=== PATIENT | male | born 1940 | race Caucasian/White ===

== ENCOUNTER 2018-08-27 15:56 | Inpatient (IN) ==
[2018-08-27] MEDS ORDERED: Ipratropium/Albuterol Neb 3 ML IH ONE (16:07)
[2018-08-27] MEDS ORDERED: predniSONE 20 MG TABLET PO ONE (16:08)
--- NOTE | 2018-08-27 16:13 | Emergency Department Note ---
Disposition Clinical Impression: Sepsis Qualifiers: Sepsis type: sepsis due to unspecified organism Qualified Code(s): A41.9 - Sepsis, unspecified organism Disposition: Still a Patient General Adult HPI - General Chief complaint: ED Shortness of Breath/Dyspnea Stated complaint: Pnuemonia Time Seen by Provider: 08/27/18 16:01 - History of Present Illness HPI Narrative: Attestation note: Patient was seen with the emergency medicine resident/nurse practitioner/physician assistant operator/transitional resident/medical student: Dr. Dominick Holly I have personally performed a face to face evaluation on this patient. I have reviewed and agree with history and physical examination patient management and disposition. Briefly the salient points of the case are as follows: 78-year-old male history of COPD on home O2 continuously increasing shortness of breath lightheadedness and weakness for the past several days. Rise with positive SIRS criteria cough with sputum decreased breath sounds bilaterally with expiratory wheezing he is tachycardic in the 120s to get neck in the 22 he slightly hypoxic at 92%. She will undergo sepsis workup. Patient will get sepsis protocol including d-dimer. Disposition pending, admission anticipated. Providing 40 minutes critical care service for this patient. Pain Scale: 5 - Related Data Home Medications Medication Instructions Recorded Confirmed ALPRAZolam [Xanax 0.5 MG Tablet] 0.5 mg PO BID MDD anx 07/17/15 08/01/18 Bimatoprost [Lumigan] 1 drop BOTH EYES HS 07/17/15 08/01/18 Budesonide/Formoterol 160/4.5 2 puff IH BIDR 07/17/15 08/01/18 [Symbicort] Ipratropium/Albuterol Sulfate 1 puff IH QID PRN 07/17/15 08/01/18 [Combivent Respimat Inhal [place]] Oxygen 2 l NS CONT 07/17/15 08/01/18 Levalbuterol Neb [Xopenex Neb] 0.63 mg IH Q3H PRN 04/17/16 08/01/18 predniSONE [PredniSONE] 10 mg PO DAILY 02/15/17 08/01/18 Omeprazole [PriLOSEC] 20 mg PO DAILY 06/14/17 08/01/18 Polyethylene Glycol 3350 [MiraLAX] 17 gm PO DAILY 08/17/17 10/01/18 Previous Rx's Medication Instructions Recorded Melatonin 5 mg PO HS PRN #20 tablet 06/20/17 Allergies Allergy/AdvReac Type Severity Reaction Status Date / Time Sulfa (Sulfonamide Allergy Rash Verified 08/27/18 15:59 Antibiotics) Past Medical History - Past Medical History Medical history: Reports: COPD, GERD Surgical history: Reports: cholecystectomy, other Psychiatric history: Reports: anxiety, panic disorder - Social History Smoking Status: Unknown if ever smoked Smokeless Tobacco Status: No Alcohol use: Reports: none, occasionally Drug use: Reports: none Course Vital Signs Temperature 99.8 F H 08/27/18 15:57 Pulse Rate 121 08/27/18 15:57 Respiratory Rate 22 08/27/18 15:57 Blood Pressure 148/79 08/27/18 15:57 O2 Sat by Pulse Oximetry 92 08/27/18 15:57 Temperature 99.8 F H 08/27/18 15:57 Pulse Rate 121 08/27/18 15:57 Respiratory Rate 22 08/27/18 15:57 Blood Pressure 148/79 08/27/18 15:57 O2 Sat by Pulse Oximetry 92 08/27/18 15:57 Oxygen Delivery Oxygen Delivery Room Air
[2018-08-27] MEDS ORDERED: *HR* FentaNYL (PF) 100 MCG/2 ML VIAL IVP ONE (16:15)
[2018-08-27] MEDS ORDERED: 0.9 % Sodium Chloride 1,000 ML IVC ONE ×2 (16:17→17:05)
--- NOTE | 2018-08-27 16:17 | Emergency Department Note ---
Disposition Clinical Impression: HCAP (healthcare-associated pneumonia) Disposition: Admitted As Inpatient Condition: Fair Referrals: Khai Machado MD [Primary Care Provider] - Forms: ED Satisfaction Letter General Adult HPI - General Chief complaint: ED Shortness of Breath/Dyspnea Stated complaint: Pnuemonia Time Seen by Provider: 08/27/18 16:01 Source: patient Mode of arrival: ambulatory Limitations: no limitations Nursing Notes Reviewed: Yes Vital Signs Reviewed: Yes - History of Present Illness HPI Narrative: Randy Rice is a 78 year old male with a PMH of COPD presenting with a CC of SOB and left sided rib cage pain for two weeks duration. While pt notes symptoms first began apprx two weeks ago, symptoms significantly worsened within the last 2-3 days.He states that although he has not checked his temperature at home he has had a tactile fever as well as increased SOB from his baseline. Has been using his breathing treatments at home with some relief and is constantly on 2L O2 at home. Pain worsens with inspiration. Denies any increase in baseline cough. He also denies any recent trauma, recent immobilization, or prolonged travel. The history, physical exam, and medical decision making was performed by the medical student either while I was physically present and actively involved or I personally re-performed the exam and medical decision making. I have verified the accuracy of the medical student's documentation with regards to the history, physical exam findings, and medical decision making. 78-year-old male past medical history of COPD, dependent on oxygen, using 2 L of oxygen via nasal cannula. Seen at outside facility a few days ago. Chest x-ray did not reveal any evidence of pneumonia at that time. Patient currently complaining of left-sided rib pains, that is different from previous COPD exacerbations. Has taken one DuoNeb at home and this improved some of the symptoms. Takes daily prednisone. 10 mg orally. Onset (ago): day(s) (2-3 days) Location: chest (Left Rib cage) Radiation: non-radiation Pain Severity: moderate Pain Scale: 5 Quality: sharp, constant Consistency: constant Improves with: nothing Worsens with: other (Inhalation ) Associated symptoms: Reports: fever/chills, shortness of breath. Denies: cough, diaphoresis, headaches, nausea/vomiting Treatments Prior to Arrival: other (Duoneb at home ) - Related Data Home Medications Medication Instructions Recorded Confirmed ALPRAZolam [Xanax 0.5 MG Tablet] 0.5 mg PO BID MDD anx 07/17/15 08/01/18 Bimatoprost [Lumigan] 1 drop BOTH EYES HS 07/17/15 08/01/18 Budesonide/Formoterol 160/4.5 2 puff IH BIDR 07/17/15 08/01/18 [Symbicort] Ipratropium/Albuterol Sulfate 1 puff IH QID PRN 07/17/15 08/01/18 [Combivent Respimat Inhal [place]] Oxygen 2 l NS CONT 07/17/15 08/01/18 Levalbuterol Neb [Xopenex Neb] 0.63 mg IH Q3H PRN 04/17/16 08/01/18 predniSONE [PredniSONE] 10 mg PO DAILY 02/15/17 08/01/18 Omeprazole [PriLOSEC] 20 mg PO DAILY 06/14/17 08/01/18 Polyethylene Glycol 3350 [MiraLAX] 17 gm PO DAILY 06/17/17 08/01/18 Previous Rx's Medication Instructions Recorded Melatonin 5 mg PO HS PRN #20 tablet 06/20/17 Allergies Allergy/AdvReac Type Severity Reaction Status Date / Time Sulfa (Sulfonamide Allergy Rash Verified 08/27/18 15:59 Antibiotics) All systems ED: reviewed and negative except as stated. Review of Systems: As Per HPI Constitutional: Reports: fever (Subjective), chills Cardiovascular: Reports: chest pain (Left-sided rib pain) Respiratory: Reports: cough, dyspnea. Denies: hemoptysis Gastrointestinal: Denies: abdominal pain Musculoskeletal: Reports: back pain Endocrine: Denies: fatigue Past Medical History - Past Medical History Medical history: Reports: COPD, GERD Surgical history: Reports: cholecystectomy, other Psychiatric history: Reports: anxiety, panic disorder - Social History Smoking Status: Unknown if ever smoked Smokeless Tobacco Status: No Alcohol use: Reports: none, occasionally Drug use: Reports: none Physical Exam - General Limitations: no limitations General appearance: alert - Head Head exam: normocephalic - Eye Eye exam: Present: EOMI - ENT ENT exam: mucous membranes dry - Neck Neck exam: Present: full ROM, trachea midline - Chest Chest inspection: Present: normal inspection, symmetric chest wall rise - Respiratory Respiratory exam: Present: wheezes (Insipratiory & Expiratory wheezes), prolonged expiratory phase, other (Significantly decreased breath sounds throughout ) - Cardiovascular Cardiovascular exam: Present: normal rhythm, tachycardia - Abdominal Exam Abdominal exam: Present: soft, Non-Tender. Absent: distention, guarding, rebound, rigidity - Extremities Exam Extremities exam: Present: normal inspection, other (No palpable cords, no lower semi-swelling). Absent: tenderness, pedal edema, calf tenderness - Expanded Lower Extremity Exam Lower leg exam: Absent: tenderness, swelling Ankle exam: Absent: swelling Course Vital Signs Temperature 99.8 F H 08/27/18 15:57 Pulse Rate 121 08/27/18 15:57 Respiratory Rate 22 08/27/18 15:57 Blood Pressure 148/79 08/27/18 15:57 O2 Sat by Pulse Oximetry 92 08/27/18 15:57 Temperature 99.8 F H 08/27/18 16:16 Pulse Rate 121 08/27/18 16:16 Respiratory Rate 16 08/27/18 16:40 Blood Pressure 148/79 08/27/18 16:16 O2 Sat by Pulse Oximetry 99 08/27/18 16:40 Oxygen Delivery Oxygen Delivery Room Air Medical Decision Making - MDM Narrative Medical decision making narrative: 78-year-old male presents emergency department with concern for tachycardia, shortness of breath, left-sided rib pain. EKG did not reveal any ischemic ST changes. Patient was given 2 L of normal saline here in the emergency de partment. Chest x-ray reveals new infiltrate in the mid to upper left long concerning for pneumonia. Patient is mild leukocytosis at 12.8. Lactic acid normal. Patient given 3 DuoNeb's in the emergency department as well as 60 mg of prednisone orally. Will start patient on Vancomycin, Zosyn, Levaquin. At risk for hospital-acquired pneumonia as he was recently admitted. Blood pressure and oxygen saturation remains stable. Patient complaining of chest pain. D-dimer was within normal limits. Troponin was negative. Do not suspect dissection at this time as patient has equal pulses bilaterally, only complaining of left-sided chest pain and only mildly which would be atypical for dissection. Patient admitted to hospitalist, Dr. High for further management. Chest X-Ray 08/27/18 16:03 IMPRESSION: 1. New infiltrate versus atelectasis lateral mid to upper left lung may reflect pneumonia. 2. Changes typical of emphysema. D/ / Kulwinder Clinton / Kulwinder Clinton Interpreting Provider: Kulwinder Clinton Vital Signs Temperature 99.8 F H 08/27/18 15:57 Pulse Rate 121 08/27/18 15:57 Respiratory Rate 22 08/27/18 15:57 Blood Pressure 148/79 08/27/18 15:57 O2 Sat by Pulse Oximetry 92 08/27/18 15:57 Temperature 99.8 F H 08/27/18 16:16 Pulse Rate 121 08/27/18 16:16 Respiratory Rate 16 08/27/18 16:40 Blood Pressure 148/79 08/27/18 16:16 O2 Sat by Pulse Oximetry 99 08/27/18 16:40 Oxygen Delivery Oxygen Delivery Room Air - Lab Data Result diagrams: 08/27/18 16:25 08/27/18 16:25 Lab Results 08/27/18 08/27/18 08/27/18 Range/Units 16:25 16:25 16:25 WBC 12.8 H (4.3-11.1) K/mcL RBC 4.51 (4.19-5.50) M/mcL Hgb 13.1 (12.9-16.9) g/dL Hct 43.1 (37.5-50.1) % MCV 95.6 (83.0-100.0) fL MCH 29.0 (28.0-33.3) pg MCHC 30.4 L (31.6-35.5) g/dL RDW 13.7 (11.5-14.5) % Plt Count 176 (140-400) K/mcL MPV 11.3 (9.4-12.4) fL Immature Gran % 0.5 (0-4) % Seg Neutrophils % 84.4 % Lymphocytes % 4.1 % Monocytes % 9.9 % Eosinophils % 0.9 % Basophils % 0.2 % Neutrophils # 10.8 H (1.6-8.9) K/mcL Lymphocytes # 0.5 L (0.6-4.6) K/mcL Monocytes # 1.3 (0.0-1.3) K/mcL Eosinophils # 0.1 (0.0-0.6) K/mcL Basophils # 0.0 (0.0-0.2) K/mcL D-Dimer 457 (0-500) ng/mLFEU Sodium 138 (136-145) mEq/L Potassium 4.4 (3.5-5.1) mEq/L Chloride 97 L (98-107) mEq/L Carbon Dioxide 33 H (23-29) mEq/L BUN 16 (8-23) mg/dL Creatinine 0.87 (0.70-1.30) mg/dL Est GFR ( Amer) > 60 (> 60) Est GFR (Non-Af Amer) > 60 (> 60) BUN/Creatinine Ratio 18 (6-26) Glucose 206 H (70-105) mg/dL Calculated Osmolality 293 (280-300) Lactic Acid (0.5-2.2) mmol/L Calcium 9.3 (8.6-10.3) mg/dL Troponin I < 0.03 (< 0.04) ng/mL 08/27/18 Range/Units 16:25 WBC (4.3-11.1) K/mcL RBC (4.19-5.50) M/mcL Hgb (12.9-16.9) g/dL Hct (37.5-50.1) % MCV (83.0-100.0) fL MCH (28.0-33.3) pg MCHC (31.6-35.5) g/dL RDW (11.5-14.5) % Plt Count (140-400) K/mcL MPV (9.4-12.4) fL Immature Gran % (0-4) % Seg Neutrophils % % Lymphocytes % % Monocytes % % Eosinophils % % Basophils % % Neutrophils # (1.6-8.9) K/mcL Lymphocytes # (0.6-4.6) K/mcL Monocytes # (0.0-1.3) K/mcL Eosinophils # (0.0-0.6) K/mcL Basophils # (0.0-0.2) K/mcL D-Dimer (0-500) ng/mLFEU Sodium (136-145) mEq/L Potassium (3.5-5.1) mEq/L Chloride (98-107) mEq/L Carbon Dioxide (23-29) mEq/L BUN (8-23) mg/dL Creatinine (0.70-1.30) mg/dL Est GFR ( Amer) (> 60) Est GFR (Non-Af Amer) (> 60) BUN/Creatinine Ratio (6-26) Glucose (70-105) mg/dL Calculated Osmolality (280-300) Lactic Acid 1.0 (0.5-2.2) mmol/L Calcium (8.6-10.3) mg/dL Troponin I (< 0.04) ng/mL - EKG Data EKG #1 EKG attestation: Yes I reviewed and interpreted this EKG. EKG results narrative: 16:14 Heart rate 113 bpm, AK interval 151 ms, QRS orthodoxy 80 ms, QT 300 ms, normal axis. Sinus tachycardia with a ventricular rate of 113 bpm. No evidence of any ischemic ST changes on this EKG. Compared with the previous one obtained on June 17, 2017.
--- NOTE | 2018-08-27 16:23 | Emergency Department Note ---
Disposition SOB HPI - General Chief Complaint: ED Shortness of Breath/Dyspnea Stated Complaint: Pnuemonia Time Seen by Provider: 08/27/18 16:01 - History of Present Illness Randy Rice is a 78 year old male with a PMH of COPD presenting with a CC of SOB and left sided rib cage pain for two weeks duration. While pt notes symptoms first began apprx two weeks ago, symptoms significantly worsened within the last 2-3 days.He states that although he has not checked his temperature at home he has had a tactile fever as well as increased SOB from his baseline. Has been using his breathing treatments at home with some relief and is constantly on 2L O2 at home. Pain worsens with inspiration. Denies any increase in baseline cough. He also denies any recent trauma, recent immobilization, or prolonged travel. - Related Data Home Medications Medication Instructions Recorded Confirmed ALPRAZolam [Xanax 0.5 MG Tablet] 0.5 mg PO BID MDD anx 07/17/15 08/01/18 Bimatoprost [Lumigan] 1 drop BOTH EYES HS 07/17/15 08/01/18 Budesonide/Formoterol 160/4.5 2 puff IH BIDR 07/17/15 08/01/18 [Symbicort] Ipratropium/Albuterol Sulfate 1 puff IH QID PRN 07/17/15 08/01/18 [Combivent Respimat Inhal [place]] Oxygen 2 l NS CONT 07/17/15 08/01/18 Levalbuterol Neb [Xopenex Neb] 0.63 mg IH Q3H PRN 04/17/16 08/01/18 predniSONE [PredniSONE] 10 mg PO DAILY 02/15/17 08/01/18 Omeprazole [PriLOSEC] 20 mg PO DAILY 06/14/17 08/01/18 Polyethylene Glycol 3350 [MiraLAX] 17 gm PO DAILY 06/17/17 08/01/18 Previous Rx's Medication Instructions Recorded Melatonin 5 mg PO HS PRN #20 tablet 06/20/17 Allergies Allergy/AdvReac Type Severity Reaction Status Date / Time Sulfa (Sulfonamide Allergy Rash Verified 08/27/18 15:59 Antibiotics) Past Medical History - Past Medical History Medical history: Reports: COPD, GERD Surgical history: Reports: cholecystectomy, other Psychiatric history: Reports: anxiety, panic disorder - Social History Smoking Status: Unknown if ever smoked Smokeless Tobacco Status: No Alcohol use: Reports: none, occasionally Drug use: Reports: none Course Vital Signs Temperature 99.8 F H 08/27/18 15:57 Pulse Rate 121 08/27/18 15:57 Respiratory Rate 22 08/27/18 15:57 Blood Pressure 148/79 08/27/18 15:57 O2 Sat by Pulse Oximetry 92 08/27/18 15:57 Temperature 99.8 F H 08/27/18 15:57 Pulse Rate 121 08/27/18 15:57 Respiratory Rate 22 08/27/18 15:57 Blood Pressure 148/79 08/27/18 15:57 O2 Sat by Pulse Oximetry 92 08/27/18 15:57 Oxygen Delivery Oxygen Delivery Room Air
[2018-08-27 16:41] LABS: Basophils % 0.2 %; Eosinophils # 0.1 K/mcL (0.0-0.6); Eosinophils % 0.9 %; Hematocrit 43.1 % (37.5-50.1); Hemoglobin 13.1 g/dL (12.9-16.9); Immature Granulocytes % 0.5 % (0-4); Lymphocytes # 0.5 K/mcL (0.6-4.6); Lymphocytes % 4.1 %; Mean Corpuscular HGB Conc 30.4 g/dL (31.6-35.5); Mean Corpuscular Volume 95.6 fL (83.0-100.0); Mean Platelet Volume 11.3 fL (9.4-12.4); Monocytes # 1.3 K/mcL (0.0-1.3); Monocytes % 9.9 %; Neutrophils # 10.8 K/mcL (1.6-8.9); Platelet Count 176 K/mcL (140-400); Red Blood Count 4.51 M/mcL (4.19-5.50); Red Cell Distribution Width 13.7 % (11.5-14.5); Segmented Neutrophils % 84.4 %
[2018-08-27] MEDS ORDERED: Piperacillin/Tazobactam 3.375 GM in 0.9 % Sodium Chloride Mini Bag 100 ML IVPB ONE (17:01)
[2018-08-27] MEDS ORDERED: Levofloxacin 750 MG/150 ML 750 MG/150 ML BAG IVPB ONE (17:02)
[2018-08-27 17:06] LABS: BUN/Creatinine Ratio 18 (6-26); Blood Urea Nitrogen 16 mg/dL (8-23); Calcium 9.3 mg/dL (8.6-10.3); Carbon Dioxide 33 mEq/L (23-29); Chloride 97 mEq/L (98-107); Glucose 206 mg/dL (70-105); Osmolality,Calculated 293 (280-300); Potassium 4.4 mEq/L (3.5-5.1); Sodium 138 mEq/L (136-145); eGFR For Non-African Americans > 60 (> 60)
[2018-08-27 17:08] LABS: Troponin I < 0.03 ng/mL (< 0.04)
[2018-08-27 17:40] LABS: Bilirubin,Urine Negative (Negative); Blood,Urine Trace (Negative); Clarity,Urine Clear (Clear); Color,Urine Yellow (Yellow); Glucose,Urine (UA) >=1000 mg/dL (Normal); Ketones,Urine 40 mg/dL (Negative); Leukocyte Esterase,Urine Negative (Negative); Nitrite,Urine Negative (Negative); Protein,Urine 30 mg/dL (Neg-Trace); Specific Gravity,Urine > 1.030 (1.010-1.025); Urobilinogen,Urine Normal (Normal)
[2018-08-27 17:41] LABS: Bacteria,Urine None Seen per hpf (None-Few); Hyaline Casts,Urine None Seen per lpf (None-Few); Squamous Epithelial Cell,Urine Moderate per lpf (None-Few); WBC,Urine 0-3 per hpf (0-3)
[2018-08-27] MEDS ORDERED: Isovue-370 500 ML INFUS..BTL IV ONE (18:18)
[2018-08-27] MEDS ORDERED: Naloxone 0.4 MG/ML INJ IVP PRN (18:19)
--- NOTE | 2018-08-27 18:33 | Internal Med History&Physical ---
Date of Encounter: 08/27/18 Time of Encounter: 17:00 Internal Medicine - H&P: HPI Chief complaint: Inspiratory chest pain Admitted From: Home Plans for Post Hospital Care: Hospice - Home History of present illness: Patient is a 78-year-old male with past medical history significant for O2 dependent COPD on 2 L of nasal cannula continuously, generalized anxiety disorder, GERD and iron deficiency anemia who presents to the ER on 08/27/18 due to left chest wall pain with inspiration. She reported that symptoms started approximately 2 days ago and describes a sharp left-sided chest wall discomfort with deep inspiration which lasts for minutes and then dissipates. Patient denies any other associated symptoms. In the ER, patient was found to have a slight leukocytosis with a white blood cell count 12.8 with low-grade temp of 99.8 and on chest x-ray concerns for a new infiltrate and left middle/left upper lobe. Patient will be admitted to medical surgical floor for treatment of pneumonia. Past Med Surg Social Fam HX - Past Medical History Medical history: COPD, GERD Additional medical history: anemia, empthsema, gastric ulcer Psychiatric history: anxiety, panic disorder - Past Surgical History Surgical History: cholecystectomy, other Additional surgical history: ERCP, carpal tunnel release, bursectomy left arm - Social History Smoking Status: Unknown if ever smoked Smokeless Tobacco Status: No Alcohol use: none, occasionally Drug use: none - Family History Mother Living Status: Hx Family Neurologic Disorders: Yes (Dementia) Father Living Status: Internal Medicine - H&P: Meds ALPRAZolam [Xanax 0.5 MG Tablet] 0.5 mg PO BID MDD anx 07/17/15 [History] Bimatoprost [Lumigan] 1 drop BOTH EYES HS 07/17/15 [History] Budesonide/Formoterol 160/4.5 [Symbicort] 2 puff IH BIDR 07/17/15 [History] Ipratropium/Albuterol Sulfate [Combivent Respimat Inhal [place]] 1 puff IH QID PRN 07/17/15 [History] Oxygen 2 l NS CONT 07/17/15 [History] Levalbuterol Neb [Xopenex Neb] 0.63 mg IH Q3H PRN 04/17/16 [History] predniSONE [PredniSONE] 10 mg PO DAILY 02/15/17 [History] Omeprazole [PriLOSEC] 20 mg PO DAILY 06/14/17 [History] Polyethylene Glycol 3350 [MiraLAX] 17 gm PO DAILY 06/17/17 [History] Melatonin 5 mg PO HS PRN #20 tablet 06/20/17 [Rx] Allergy/AdvReac Type Severity Reaction Status Date / Time Sulfa (Sulfonamide Allergy Rash Verified 08/27/18 15:59 Antibiotics) All Systems PM: A 10-system review of systems was performed and is negative for pertinent fi ndings except as documented above in the HPI. - Constitutional Vitals: Temp Pulse Resp BP Pulse Ox 99.8 F H 112 18 152/76 98 08/27/18 16:16 08/27/18 17:51 08/27/18 17:51 08/27/18 17:51 08/27/18 17:51 General appearance: Present: A&O X 3 Exam: As above - Eye Eye exam: Present: normal appearance - ENT ENT exam: Present: mucous membranes dry - Respiratory Respiratory exam: Present: CTAB. Absent: accessory muscle use, rales, rhonchi, wheezes - Cardiovascular Cardiovascular exam: Present: RRR, +S1, +S2. Absent: diastolic murmur, gallop, rubs, systolic murmur - GI/Abdominal GI/Abdominal exam: Present: normal bowel sounds, soft, no peritoneal signs. Absent: distended, tenderness - Expanded Lower Extremities Exam Lower Leg exam: Absent: swelling - Neurological Exam Neurological exam: Present: alert, oriented X3 - Psychiatric Psychiatric exam: Present: normal mood - Skin Skin exam: Present: normal color Internal Med - H&P Results - Labs CBC & Chem 7: 08/27/18 16:25 08/27/18 16:25 Labs: Short CBC 08/27/18 Range/Units 16:25 WBC 12.8 H (4.3-11.1) K/mcL Hgb 13.1 (12.9-16.9) g/dL Hct 43.1 (37.5-50.1) % Plt Count 176 (140-400) K/mcL Neutrophils # 10.8 H (1.6-8.9) K/mcL BMP 08/27/18 16:25 Sodium 138 Potassium 4.4 Chloride 97 L Carbon Dioxide 33 H BUN 16 Creatinine 0.87 Glucose 206 H Calcium 9.3 Cardiac Enzymes 08/27/18 Range/Units 16:25 Troponin I < 0.03 (< 0.04) ng/mL Urine 08/27/18 Range/Units 17:33 Urine Color Yellow (Yellow) Urine Clarity Clear (Clear) Urine pH 6.0 (5.0-8.0) pH Units Ur Specific [place] > 1.030 H (1.010-1.025) Urine Protein 30 H (Neg-Trace) mg/dL Urine Glucose (UA) >=1000 H (Normal) mg/dL - Impressions ITS Impressions Chest X-Ray 08/27/18 16:03 IMPRESSION: 1. New infiltrate versus atelectasis lateral mid to upper left lung may reflect pneumonia. 2. Changes typical of emphysema. D/ / Kulwinder Clinton / Kulwinder Clinton Interpreting Provider: Kulwinder Clinton - Assessment and plan (1) Pneumonia Current Visit: Yes Status: Acute Assessment and plan: Patient was found to have a slight leukocytosis with a white blood cell count 12 .8 with low-grade temp of 99.8 and on chest x-ray concerns for a new infiltrate and left middle/left upper lobe. CT of the chest pending due to history of suspicious lung mass Will continue IV Levaquin Qualifiers: Lung location: unspecified part of lung Qualified Code(s): J18.9 - Pneumonia, unspecified organism (2) COPD exacerbation Current Visit: No Status: Acute Assessment and plan: Will continue scheduled DuoNeb's and oral prednisone (3) Anxiety Current Visit: No Status: Acute Assessment and plan: Continue home medications (4) GERD (gastroesophageal reflux disease) Current Visit: No Status: Chronic Assessment and plan: Continue home dose of PPI Qualifiers: Esophagitis presence: without esophagitis Qualified Code(s): K21.9 - Gastro-esophageal reflux disease without esophagitis (5) DVT prophylaxis Current Visit: No Status: Acute Assessment and plan: Heparin subcutaneous - Time Spent With Patient Total time spent is greater than 50% in coordination of care (as documented) at patient's floor/unit and/or counseling patient:
[2018-08-27] MEDS: Ipratropium/Albuterol Neb 3 ML IH SCH ×2 (19:54→23:55)
[2018-08-27] MEDS: 0.9 % Sodium Chloride 1,000 ML IVC SCH (23:18)
[2018-08-27] MEDS: *HR* Heparin 5,000 UNIT/ML VIAL SQ SCH (23:32)
[2018-08-28 04:09] LABS: Basophils % 0.1 %; Hematocrit 40.4 % (37.5-50.1); Immature Granulocytes % 0.4 % (0-4); Lymphocytes # 0.3 K/mcL (0.6-4.6); Lymphocytes % 2.7 %; Mean Corpuscular HGB Conc 29.7 g/dL (31.6-35.5); Mean Corpuscular Hemoglobin 28.5 pg (28.0-33.3); Mean Platelet Volume 11.4 fL (9.4-12.4); Monocytes # 0.3 K/mcL (0.0-1.3); Monocytes % 2.8 %; Neutrophils # 10.5 K/mcL (1.6-8.9); Platelet Count 175 K/mcL (140-400); Red Blood Count 4.21 M/mcL (4.19-5.50); Red Cell Distribution Width 13.7 % (11.5-14.5)
[2018-08-28 04:22] LABS: BUN/Creatinine Ratio 18 (6-26); Blood Urea Nitrogen 15 mg/dL (8-23); Calcium 8.7 mg/dL (8.6-10.3); Carbon Dioxide 31 mEq/L (23-29); Chloride 101 mEq/L (98-107); Glucose 183 mg/dL (70-105); Osmolality,Calculated 296 (280-300); Potassium 4.2 mEq/L (3.5-5.1); Sodium 140 mEq/L (136-145); eGFR For Non-African Americans > 60 (> 60)
[2018-08-28] MEDS: Ipratropium/Albuterol Neb 3 ML IH SCH ×6 (04:34→23:16)
[2018-08-28] MEDS: *HR* Heparin 5,000 UNIT/ML VIAL SQ SCH ×3 (05:33→22:26)
[2018-08-28] MEDS: Melatonin 3 MG TABLET PO PRN ×2 (05:35→23:26)
[2018-08-28] MEDS: 0.9 % Sodium Chloride 1,000 ML IVC SCH (06:53)
--- NOTE | 2018-08-28 09:41 | Internal Med Progress Note ---
Hospitalist Progress Note - Encounter Date of Encounter: 08/28/18 Time of Encounter: 11:00 - Subjective Interval History: Patient reports improvement in shortness of breath and no longer reported chest pain Patient's leukocytosis has resolved and has been afebrile and currently on baseline O2 requirements - Exam Vitals: Temp Pulse Resp BP Pulse Ox 98.6 F 92 18 103/62 98 08/28/18 07:25 08/28/18 07:25 08/28/18 07:43 08/28/18 07:25 08/28/18 07:43 Exam: Gen.: Nonacute distress, alert and oriented 3 ENT: Mucosal membranes moist Respiratory: Lungs are clear to auscultation bilaterally without any wheezing rhonchi or rales Cardiovascular: Normal S1 and S2 regular rate rhythm no murmurs rubs or gallops Abdomen: Soft, nontender and nondistended with positive bowel sounds Extremities: No lower extremity edema Skin: Normal color - Assessment and Plan (1) Pneumonia Current Visit: Yes Status: Acute Assessment and Plan: Patient on admission was found to have a slight leukocytosis with a white blood cell count 12.8 with low-grade temp of 99.8 and on chest x-ray concerns for a new infiltrate and left middle/left upper lobe. CT of the chest showed left lower lobe pneumonia with moderate emphysema Patient's leukocytosis has resolved this morning and afebrile on day 2 of IV Levaquin; patient on baseline O2 requirements Continue current management (2) COPD exacerbation Current Visit: No Status: Acute Assessment and Plan: Secondary to pneumonia as above Patient on baseline O2 requirements as above Will continue scheduled DuoNeb's and oral prednisone (3) Anxiety Current Visit: No Status: Acute Assessment and Plan: Continue home medications (4) GERD (gastroesophageal reflux disease) Current Visit: No Status: Chronic Assessment and Plan: Continue home dose of PPI DVT Prophylaxis: Heparin subcutaneous - Time Spent with Patient Total time spent is greater than 50% in coordination of care (as documented) at patient's floor/unit and/or counseling patient: Internal Medicine: Result - Labs CBC & Chem 7: 08/28/18 03:50 08/28/18 03:50 Labs: Short CBC 08/27/18 08/28/18 Range/Units 16:25 03:50 WBC 12.8 H 11.1 (4.3-11.1) K/mcL Hgb 13.1 12.0 L (12.9-16.9) g/dL Hct 43.1 40.4 (37.5-50.1) % Plt Count 176 175 (140-400) K/mcL Neutrophils # 10.8 H 10.5 H (1.6-8.9) K/mcL BMP 08/27/18 08/28/18 16:25 03:50 Sodium 138 140 Potassium 4.4 4.2 Chloride 97 L 101 Carbon Dioxide 33 H 31 H BUN 16 15 Creatinine 0.87 0.82 Glucose 206 H 183 H Calcium 9.3 8.7 Cardiac Enzymes 08/27/18 Range/Units 16:25 Troponin I < 0.03 (< 0.04) ng/mL Urine 08/27/18 Range/Units 17:33 Urine Color Yellow (Yellow) Urine Clarity Clear (Clear) Urine pH 6.0 (5.0-8.0) pH Units Ur Specific [employer] > 1.030 H (1.010-1.025) Urine Protein 30 H (Neg-Trace) mg/dL Urine Glucose (UA) >=1000 H (Normal) mg/dL - ABG Interpretation ABG results: PT/INR, D-dimer D-Dimer 457 ng/mLFEU (0-500) 08/27/18 16:25 - Impressions Impressions Chest X-Ray 08/27/18 16:03 IMPRESSION: 1. New infiltrate versus atelectasis lateral mid to upper left lung may reflect pneumonia. 2. Changes typical of emphysema. D/ / Kulwinder Clinton / Kulwinder Clinton Interpreting Provider: Kulwinder Clinton Chest CT 08/27/18 18:18 IMPRESSION: Left lower lobe pneumonia. Moderate emphysema. Recommend follow-up to complete resolution. D/ / Ariel Gentile MD / Ariel Gentile MD Interpreting Provider: Ariel Gentile MD Consult Discharge Plan - Plan Referrals: Khai Machado MD [Primary Care Provider] - __ (1) Pneumonia Qualifiers: Lung location: unspecified part of lung Qualified Code(s): J18.9 - Pneumonia, unspecified organism (4) GERD (gastroesophageal reflux disease) Qualifiers: Esophagitis presence: without esophagitis Qualified Code(s): K21.9 - Gastro- esophageal reflux disease without esophagitis
[2018-08-28] MEDS: predniSONE 20 MG TABLET PO SCH (09:53)
[2018-08-28] MEDS: Levofloxacin 750 MG/150 ML 750 MG/150 ML BAG IVPB SCH (09:54)
[2018-08-29] MEDS: Ipratropium/Albuterol Neb 3 ML IH SCH ×4 (04:12→16:25)
[2018-08-29] MEDS: *HR* Heparin 5,000 UNIT/ML VIAL SQ SCH ×2 (05:15→16:23)
[2018-08-29] MEDS: predniSONE 20 MG TABLET PO SCH (08:42)
[2018-08-29] MEDS: Levofloxacin 750 MG/150 ML 750 MG/150 ML BAG IVPB SCH (08:43)
[2018-08-29 11:07] VITALS: BP 132/65
[2018-08-29 13:27] LABS: Estimated Average Glucose 174 mg/dl; Hemoglobin A1C 7.7 %
--- NOTE | 2018-08-29 15:25 | Discharge Summary ---
- NOTES TO OUTPATIENT PROVIDER Notes to Outpatient Provider: PCP in 5 to 7 days. Orders not resulted at time of discharge: Pending orders 08/27/18 16:25 Culture,Blood [BC] Stat Recommend out pt diabetic teaching Date of Encounter: 08/29/18 Time of Encounter: 15:18 - Discharge Diagnosis (1) Pneumonia Priority: Primary Status: Acute Assessment and Plan: Patient on admission was found to have a slight leukocytosis with a white blood cell count 12.8 with low-grade temp of 99.8 and on chest x-ray concerns for a new infiltrate and left middle/left upper lobe. CT of the chest showed left lower lobe pneumonia with moderate emphysema. Patient's leukocytosis has resolved this morning and afebrile on day 2 of IV Levaquin; patient on baseline O2 requirements. Will DC on Levaquin PO for few more days. Qualifiers: Lung location: unspecified part of lung Qualified Code(s): J18.9 - Pneum onia, unspecified organism (2) COPD exacerbation Priority: Primary Status: Acute Assessment and Plan: Secondary to pneumonia as above Patient on baseline O2 requirements as above Continue scheduled home DuoNeb's and oral prednisone (3) GERD (gastroesophageal reflux disease) Priority: Secondary Status: Chronic Assessment and Plan: Continue home dose Omeprazole 20 mg PO QD Qualifiers: Esophagitis presence: without esophagitis Qualified Code(s): K21.9 - Gastro-esophageal reflux disease without esophagitis (4) Anxiety Priority: Secondary Status: Acute Assessment and Plan: Continue home medications (5) Diabetes type 2, uncontrolled Priority: Primary Status: Acute Assessment and Plan: New diagnosis on this admission. Possibly exacerbated by chronic steroid use. Hg A1c 7.7. Will start on Metformin 500 mg BID. Recommend out pt follow up with PCP. Qualifiers: Qualified Code(s): E11.65 - Type 2 diabetes mellitus with hyperglycemia Hospital course: Mr. 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 She reported that symptoms started approximately 2 days ago and describes a sharp left-sided chest wall discomfort with deep inspiration which lasts for minutes and then dissipates. Patient denies any other associated symptoms. In the ER, patient was found to have a slight leukocytosis with a white blood cell count 12.8 with low-grade temp of 99.8 and on chest x-ray concerns for a new infiltrate and left middle/left upper lobe. Patient will be admitted to medical surgical floor for treatment of pneumonia. See assessment and plan for complete hospital course. Discharge discussed with: patient - Time Spent with Patient Total time spent providing and/or coordinating discharge services: Greater than 30 minutes - Discharge Medications Home Medications: ALPRAZolam [Xanax 0.5 MG Tablet] 0.5 mg PO BID PRN 07/17/15 [History] Bimatoprost [Lumigan] 1 drop BOTH EYES HS 07/17/15 [History] Budesonide/Formoterol 160/4.5 [Symbicort] 2 puff IH BIDR 07/17/15 [History] Ipratropium/Albuterol Sulfate [Combivent Respimat Inhal [place]] 1 puff IH QID PRN 07/17/15 [History] Oxygen 2 l NS CONT 07/17/15 [History] Levalbuterol Neb [Xopenex Neb] 0.63 mg IH Q3H PRN 04/17/16 [History] predniSONE [PredniSONE] 10 mg PO DAILY 02/15/17 [History] Omeprazole [PriLOSEC] 20 mg PO DAILY 06/14/17 [History] Polyethylene Glycol 3350 [MiraLAX] 17 gm PO DAILY 06/17/17 [History] Melatonin 5 mg PO HS PRN #20 tablet 06/20/17 [Rx] metFORMIN [Glucophage] 500 mg PO BIDWM #30 tablet 08/29/18 [Rx] Allergies/Adverse Reactions: Allergy/AdvReac Type Severity Reaction Status Date / Time Sulfa (Sulfonamide Allergy Rash Verified 08/27/18 15:59 Antibiotics) Date of admission: 08/27/18 20:57 Primary care physician: Khai Machado MD Discharging clinician: Eula Jaimes Anticipated date of discharge: 08/29/18 - Constitutional Vitals: Temp Pulse Resp BP Pulse Ox 99.1 F 103 12 132/65 98 08/29/18 11:06 08/29/18 11:06 08/29/18 11:50 08/29/18 11:06 08/29/18 11:50 General appearance: Present: A&O X 3 Exam: Exam: Gen.: Nonacute distress, alert and oriented 3 ENT: Mucosal membranes moist Respiratory: Lungs with some tightness in the bases but without any wheezing rhonchi or rales Cardiovascular: Normal S1 and S2 regular rate rhythm no murmurs rubs or gallops Abdomen: Soft, nontender and nondistended with positive bowel sounds Extremities: No lower extremity edema Skin: Normal color - Patient Status Disposition: Home, Self-Care Condition: Fair Overall status at discharge: patient is progressing back to baseline - Discharge Instructions Follow Up With: Khai Machado MD [Primary Care Provider] - - Diet and Activity Activity: increase activity as tolerated Diet: advance to your usual diet, diabetic diet
[2018-08-29] MEDS ORDERED: *HR* Metformin 500 MG TABLET PO SCH (17:00)
--- NOTE | 2018-09-02 18:20 | Electrocardiograph Report ---
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
== END 2018-08-29 16:47 | disposition home or self-care (01) | DRG 195 ==
LOC: EMEROOARM 15:56 → 2ANU 15:56 → SUATTDRO 20:57 → 2ANU 21:44
PROVIDERS: ADMIT Internal Medicine Nephrology; ATTEND Hospitalist

== ENCOUNTER 2019-03-23 12:48 | Inpatient (IN) ==
[2019-03-23] MEDS ORDERED: methylPREDNISolone 125 MG/2 ML VIAL IVP ONE (13:23)
[2019-03-23] MEDS ORDERED: Ipratropium/Albuterol Neb 3 ML IH ONE (13:23)
--- NOTE | 2019-03-23 13:27 | Emergency Department Note ---
Disposition Clinical Impression: Acute exacerbation of chronic obstructive airways disease, Healthcare- associated pneumonia Disposition: Admitted As Inpatient Condition: Fair Time of Disposition: 16:33 SOB HPI - General Chief Complaint: ED Shortness of Breath/Dyspnea Stated Complaint: RONY Congestion Time Seen by Provider: 03/23/19 12:58 Source: patient Limitations: no limitations Nursing Notes Reviewed: Yes Vital Signs Reviewed: Yes - History of Present Illness 78-year-old male past medical history of severe COPD, anemia, diabetes presenting for 3 days of worsening shortness of breath. Patient states he feels this way on prior COPD exacerbations as well as when he is anemic. Patient states that he has felt distended in his abdomen which is possibly due to constipation which he states is chronic. Patient has no other concerns or complaints at this time. Pt Subjective Complaint: shortness of breath Severity: moderate Known history of: COPD Associated symptoms: Reports: denies other symptoms - Related Data Home Medications Medication Instructions Recorded Confirmed ALPRAZolam [Xanax 0.5 MG Tablet] 0.5 mg PO BID PRN 07/17/15 03/10/19 Bimatoprost [Lumigan] 1 drop BOTH EYES HS 07/17/15 03/10/19 Budesonide/Formoterol 160/4.5 2 puff IH BIDR 07/17/15 03/10/19 [Symbicort] Ipratropium/Albuterol Sulfate 1 puff IH QID PRN 07/17/15 03/10/19 [Combivent Respimat Inhal [place]] Oxygen 2 l NS CONT 07/17/15 03/10/19 Levalbuterol Neb [Xopenex Neb] 0.63 mg IH Q3H PRN 04/17/16 03/10/19 Omeprazole [PriLOSEC] 20 mg PO DAILY 06/14/17 03/10/19 Polyethylene Glycol 3350 [MiraLAX] 17 gm PO DAILY 06/17/17 03/10/19 metFORMIN [Glucophage] 500 mg PO BID 11/28/18 03/10/19 Finasteride [Proscar] 5 mg PO DAILY 01/08/19 03/10/19 Previous Rx's Medication Instructions Recorded Aspirin Enteric Coated [Aspirin EC] 81 mg PO DAILY #30 tablet. 10/15/18 Metoprolol [Lopressor] 12.5 mg PO BID #60 tablet 10/15/18 Allergies Allergy/AdvReac Type Severity Reaction Status Date / Time Sulfa (Sulfonamide Allergy Rash Verified 03/10/19 09:02 Antibiotics) Review of Systems: See history of present illness for further details Constitutional: Denies: fever, chills Cardiovascular: Denies: chest pain Respiratory: Admits dyspnea, cough, denies: hemoptysis Gastrointestinal: Denies: abdominal pain, nausea, vomiting, diarrhea, constipation, hematemesis, melena, hematochezia Genitourinary: Denies: hematuria Musculoskeletal: Denies: back pain, neck pain Integumentary: Denies: rash Neurological: Admits to lightheadedness, dizziness, headache, weakness Denies: numbness, paresthesias, difficulty with ambulation. Endocrine: Admits fatigue All systems ED: reviewed and negative except as stated. Review of Systems: As Per HPI Past Medical History - Past Medical History Medical history: Reports: COPD, GERD, hyperlipidemia, hypertension Surgical history: Reports: cholecystectomy, other Psychiatric history: Reports: anxiety, panic disorder - Social History Smoking Status: Former smoker Smokeless Tobacco Status: No (Patient stated he quit about 20 plus yerars ago.) Alcohol use: Reports: none Drug use: Reports: none Physical Exam Constitutional: No acute distress, [id number], engaged to conversation, speech is fluid, answers questions appropriately Neuro: GCS 15, no overt focal neurological deficits Head: Atraumatic, normocephalic Eyes: Pupils equal, round and reactive to light, no scleral icterus, no conjunctival injection Neck: Trachea midline without deviation. Anterior neck is supple without swelling. *Chest: Symmetric chest wall rise *Heart: Cardiac rhythm and rate are regular with S1 and S2 , no S3 or S4 appreciated, no murmurs, gallops, rubs, or clicks. *Lungs: Diffuse rhonchi noted bilaterally. without accessory muscle use or prolonged expiratory phase. No stridor appreciated. Abdomen: Abdomen is flat, soft to palpation, normal bowel sounds. No abdominal bruit auscultated. Non-distended, non-rigid, no organomegaly, no ascites appreciated. No pulsatile mass, no tenderness or guarding to palpation in all four quadrants, no rebound Extremities: Normal capillary refill without evidence of pedal edema, joint swelling or erythema. Pulses/motor/sensory intact in all 4 extremities. Psychiatric exam: Patient displays a normal affect and mood for the environment. No overt signs of hallucination. Integumentary: warm, dry, intact, normal color. No rash, cyanosis, diaphoresis, erythema, or pallor - General Limitations: no limitations General appearance: alert, in no apparent distress Course Course Narrative: CBC, BMP, BNP, troponin EKG/old EKG, Chest x-ray DuoNeb nebs, steroids, broad-spectrum antibiotics. Vital Signs Temperature 100.1 F H 03/23/19 12:59 Pulse Rate 117 03/23/19 12:59 Respiratory Rate 20 03/23/19 12:59 Blood Pressure 146/76 03/23/19 12:59 O2 Sat by Pulse Oximetry 98 03/23/19 12:59 Temperature 100.1 F H 03/23/19 12:59 Pulse Rate 110 03/23/19 15:26 Respiratory Rate 20 03/23/19 15:26 Blood Pressure 107/56 03/23/19 15:26 O2 Sat by Pulse Oximetry 96 03/23/19 15:26 Oxygen Delivery Oxygen Delivery Nasal Cannula Shortness of Breath/Dyspnea - [facility] Narrative Medical decision making narrative: EKG laboratory results are negative for acute pathology when compared to patient's prior results Imaging concerning for pneumonia We will begin broad spectrum antibiotics with vancomycin, Zosyn and azithromycin here in the ED Patient be admitted to hospital medicine service for further evaluation and management of bilateral pneumonia. Patient verbalizes understanding and agreement this plan. Dr. Varner accepting admission. - Lab Data Lab results reviewed: Yes I reviewed the patient's lab results. Result diagrams: 03/23/19 13:33 03/23/19 13:33 Lab Results 03/23/19 03/23/19 03/23/19 Range/Units 13:33 13:33 13:33 WBC 9.6 (4.3-11.1) K/mcL RBC 3.54 L (4.19-5.50) M/mcL Hgb 9.6 L (12.9-16.9) g/dL Hct 33.7 L (37.5-50.1) % MCV 95.2 D (83.0-100.0) fL MCH 27.1 L (28.0-33.3) pg MCHC 28.5 L (31.6-35.5) g/dL RDW 23.2 H (11.5-14.5) % Plt Count 197 (140-400) K/mcL MPV 11.4 (9.4-12.4) fL Immature Gran % 0.5 (0-4) % Seg Neutrophils % 86.8 % Lymphocytes % 5.5 % Monocytes % 6.0 % Eosinophils % 0.9 % Basophils % 0.3 % Neutrophils # 8.3 (1.6-8.9) K/mcL Lymphocytes # 0.5 L (0.6-4.6) K/mcL Monocytes # 0.6 (0.0-1.3) K/mcL Eosinophils # 0.1 (0.0-0.6) K/mcL Basophils # 0.0 (0.0-0.2) K/mcL Platelet Estimate Normal (Normal) Hypochromasia Present A (Not Present) Anisocytosis 2+ A (Not Present) Sodium 141 (136-145) mEq/L Potassium 4.0 (3.5-5.1) mEq/L Chloride 95 L (98-107) mEq/L Carbon Dioxide 33 H (23-29) mEq/L BUN 14 (8-23) mg/dL Creatinine 0.74 (0.70-1.30) mg/dL Est GFR ( Amer) > 60 (> 60) Est GFR (Non-Af Amer) > 60 (> 60) BUN/Creatinine Ratio 19 (6-26) Glucose 128 H (70-105) mg/dL Calculated Osmolality 294 (280-300) Lactic Acid (0.5-2.2) mmol/L Calcium 8.6 (8.6-10.3) mg/dL Troponin I < 0.03 (< 0.04) ng/mL B-Natriuretic Peptide 12 (Less than 100) pg/mL Urine Color (Yellow) Urine Clarity (Clear) Urine pH (5.0-8.0) pH Units Ur Specific [place] (1.010-1.025) Urine Protein (Neg-Trace) mg/dL Urine Glucose (UA) (Normal) mg/dL Urine Ketones (Negative) mg/dL Urine Blood (Negative) Urine Nitrite (Negative) Urine Bilirubin (Negative) Urine Urobilinogen (Normal) mg/dL Ur Leukocyte Esterase (Negative) Urine Microscopic RBC (0-3) per hpf Urine Microscopic WBC (0-3) per hpf Ur Squamous Epith Cells (None-Few) per lpf Urine Bacteria (None-Few) per hpf Hyaline Casts (None-Few) per lpf Ur Culture Indicated? (NO) Blood Type Antibody Screen 03/23/19 03/23/19 03/23/19 Range/Units 13:33 13:33 14:44 WBC (4.3-11.1) K/mcL RBC (4.19-5.50) M/mcL Hgb (12.9-16.9) g/dL Hct (37.5-50.1) % MCV (83.0-100.0) fL MCH (28.0-33.3) pg MCHC (31.6-35.5) g/dL RDW (11.5-14.5) % Plt Count (140-400) K/mcL MPV (9.4-12.4) fL Immature Gran % (0-4) % Seg Neutrophils % % Lymphocytes % % Monocytes % % Eosinophils % % Basophils % % Neutrophils # (1.6-8.9) K/mcL Lymphocytes # (0.6-4.6) K/mcL Monocytes # (0.0-1.3) K/mcL Eosinophils # (0.0-0.6) K/mcL Basophils # (0.0-0.2) K/mcL Platelet Estimate (Normal) Hypochromasia (Not Present) Anisocytosis (Not Present) Sodium (136-145) mEq/L Potassium (3.5-5.1) mEq/L Chloride (98-107) mEq/L Carbon Dioxide (23-29) mEq/L BUN (8-23) mg/dL Creatinine (0.70-1.30) mg/dL Est GFR ( Amer) (> 60) Est GFR (Non-Af Amer) (> 60) BUN/Creatinine Ratio (6-26) Glucose (70-105) mg/dL Calculated Osmolality (280-300) Lactic Acid 1.2 (0.5-2.2) mmol/L Calcium (8.6-10.3) mg/dL Troponin I (< 0.04) ng/mL B-Natriuretic Peptide (Less than 100) pg/mL Urine Color Yellow (Yellow) Urine Clarity Clear (Clear) Urine pH 6.0 (5.0-8.0) pH Units Ur Specific [place] 1.017 (1.010-1.025) Urine Protein 30 H (Neg-Trace) mg/dL Urine Glucose (UA) 250 H (Normal) mg/dL Urine Ketones 15 H (Negative) mg/dL Urine Blood Negative (Negative) Urine Nitrite Negative (Negative) Urine Bilirubin Negative (Negative) Urine Urobilinogen Normal (Normal) mg/dL Ur Leukocyte Esterase Negative (Negative) Urine Microscopic RBC 0-3 (0-3) per hpf Urine Microscopic WBC 0-3 (0-3) per hpf Ur Squamous Epith Cells Many H (None-Few) per lpf Urine Bacteria None Seen (None-Few) per hpf Hyaline Casts None Seen (None-Few) per lpf Ur Culture Indicated? NO (NO) Blood Type O POSITIVE Antibody Screen NEGATIVE - Radiology Data Radiology results reviewed: Yes I reviewed the patient's radiology results. Chest X-Ray 03/23/19 13:23 IMPRESSION: 1. Slightly increased right basilar airspace opacity potentially due to infectious or inflammatory bronchiolitis as on the prior CT versus developing pneumonia. 2. Mild bronchial wall thickening potentially due to reactive airways disease or bronchitis. D/ / Rohit Hernandez MD / Rohit Hernandez MD Interpreting Provider: Rohit Hernandez MD - EKG Data EKG attestation: Yes I reviewed and interpreted this EKG. EKG results narrative: Patient EKG shows sinus tachycardia with a heart of 113 bpm, UT interval of 146 ms, QS duration of 81 ms, QT/QTc interval 290/398 ms respectively. There are no significant ST segment elevations, depressions, pathologic Q's, abnormal T-wave inversions, nor any signs of acute ischemic change. EKG performed today is generally consistent with prior EKG performed on 01/28/2019.
[2019-03-23 13:50] LABS: Basophils % 0.3 %; Eosinophils % 0.9 %; Hemoglobin 9.6 g/dL (12.9-16.9); Immature Granulocytes % 0.5 % (0-4)
[2019-03-23 13:52] LABS: Eosinophils # 0.1 K/mcL (0.0-0.6); Hematocrit 33.7 % (37.5-50.1); Lymphocytes # 0.5 K/mcL (0.6-4.6); Lymphocytes % 5.5 %; Mean Corpuscular HGB Conc 28.5 g/dL (31.6-35.5); Mean Corpuscular Hemoglobin 27.1 pg (28.0-33.3); Mean Corpuscular Volume 95.2 fL (83.0-100.0); Mean Platelet Volume 11.4 fL (9.4-12.4); Monocytes # 0.6 K/mcL (0.0-1.3); Neutrophils # 8.3 K/mcL (1.6-8.9); Platelet Count 197 K/mcL (140-400); Red Blood Count 3.54 M/mcL (4.19-5.50); Red Cell Distribution Width 23.2 % (11.5-14.5); Segmented Neutrophils % 86.8 %
--- NOTE | 2019-03-23 14:15 | Emergency Department Note ---
Disposition Clinical Impression: Acute exacerbation of chronic obstructive airways disease, Healthcare- associated pneumonia Disposition: Admitted As Inpatient Condition: Fair Referrals: Carter,Khai Lang MD [Primary Care Provider] - Forms: ED Satisfaction Letter Time of Disposition: 16:02 General Adult HPI - General Chief complaint: ED Shortness of Breath/Dyspnea Stated complaint: RONY Congestion Time Seen by Provider: 03/23/19 12:58 Source: patient Limitations: no limitations - History of Present Illness Pain Scale: 0 - Related Data Home Medications Medication Instructions Recorded Confirmed ALPRAZolam [Xanax 0.5 MG Tablet] 0.5 mg PO BID PRN 07/17/15 03/10/19 Bimatoprost [Lumigan] 1 drop BOTH EYES HS 07/17/15 03/10/19 Budesonide/Formoterol 160/4.5 2 puff IH BIDR 07/17/15 03/10/19 [Symbicort] Ipratropium/Albuterol Sulfate 1 puff IH QID PRN 07/17/15 03/10/19 [Combivent Respimat Inhal [place]] Oxygen 2 l NS CONT 07/17/15 03/10/19 Levalbuterol Neb [Xopenex Neb] 0.63 mg IH Q3H PRN 04/17/16 03/10/19 Omeprazole [PriLOSEC] 20 mg PO DAILY 06/14/17 03/10/19 Polyethylene Glycol 3350 [MiraLAX] 17 gm PO DAILY 06/17/17 03/10/19 metFORMIN [Glucophage] 500 mg PO BID 11/28/18 03/10/19 Finasteride [Proscar] 5 mg PO DAILY 01/08/19 03/10/19 Previous Rx's Medication Instructions Recorded Aspirin Enteric Coated [Aspirin EC] 81 mg PO DAILY #30 tablet. 10/15/18 Metoprolol [Lopressor] 12.5 mg PO BID #60 tablet 10/15/18 Allergies Allergy/AdvReac Type Severity Reaction Status Date / Time Sulfa (Sulfonamide Allergy Rash Verified 03/10/19 09:02 Antibiotics) Past Medical History - Past Medical History Medical history: Reports: COPD, GERD, hyperlipidemia, hypertension Surgical history: Reports: cholecystectomy, other Psychiatric history: Reports: anxiety, panic disorder - Social History Smoking Status: Former smoker Smokeless Tobacco Status: No (Patient stated he quit about 20 plus yerars ago.) Alcohol use: Reports: none Drug use: Reports: none Physical Exam - General Limitations: no limitations General appearance: alert, in no apparent distress Course Vital Signs Temperature 100.1 F H 03/23/19 12:59 Pulse Rate 117 03/23/19 12:59 Respiratory Rate 20 03/23/19 12:59 Blood Pressure 146/76 03/23/19 12:59 O2 Sat by Pulse Oximetry 98 03/23/19 12:59 Temperature 100.1 F H 03/23/19 12:59 Pulse Rate 110 03/23/19 15:26 Respiratory Rate 20 03/23/19 15:26 Blood Pressure 107/56 03/23/19 15:26 O2 Sat by Pulse Oximetry 96 03/23/19 15:26 Oxygen Delivery Oxygen Delivery Nasal Cannula Medical Decision Making - Lab Data Result diagrams: 03/23/19 13:33 03/23/19 13:33 Lab Results 03/23/19 03/23/19 03/23/19 Range/Units 13:33 13:33 13:33 WBC 9.6 (4.3-11.1) K/mcL RBC 3.54 L (4.19-5.50) M/mcL Hgb 9.6 L (12.9-16.9) g/dL Hct 33.7 L (37.5-50.1) % MCV 95.2 D (83.0-100.0) fL MCH 27.1 L (28.0-33.3) pg MCHC 28.5 L (31.6-35.5) g/dL RDW 23.2 H (11.5-14.5) % Plt Count 197 (140-400) K/mcL MPV 11.4 (9.4-12.4) fL Immature Gran % 0.5 (0-4) % Seg Neutrophils % 86.8 % Lymphocytes % 5.5 % Monocytes % 6.0 % Eosinophils % 0.9 % Basophils % 0.3 % Neutrophils # 8.3 (1.6-8.9) K/mcL Lymphocytes # 0.5 L (0.6-4.6) K/mcL Monocytes # 0.6 (0.0-1.3) K/mcL Eosinophils # 0.1 (0.0-0.6) K/mcL Basophils # 0.0 (0.0-0.2) K/mcL Platelet Estimate Normal (Normal) Hypochromasia Present A (Not Present) Anisocytosis 2+ A (Not Present) Sodium 141 (136-145) mEq/L Potassium 4.0 (3.5-5.1) mEq/L Chloride 95 L (98-107) mEq/L Carbon Dioxide 33 H (23-29) mEq/L BUN 14 (8-23) mg/dL Creatinine 0.74 (0.70-1.30) mg/dL Est GFR ( Amer) > 60 (> 60) Est GFR (Non-Af Amer) > 60 (> 60) BUN/Creatinine Ratio 19 (6-26) Glucose 128 H (70-105) mg/dL Calculated Osmolality 294 (280-300) Lactic Acid (0.5-2.2) mmol/L Calcium 8.6 (8.6-10.3) mg/dL Troponin I < 0.03 (< 0.04) ng/mL B-Natriuretic Peptide 12 (Less than 100) pg/mL Urine Color (Yellow) Urine Clarity (Clear) Urine pH (5.0-8.0) pH Units Ur Specific [place] (1.010-1.025) Urine Protein (Neg-Trace) mg/dL Urine Glucose (UA) (Normal) mg/dL Urine Ketones (Negative) mg/dL Urine Blood (Negative) Urine Nitrite (Negative) Urine Bilirubin (Negative) Urine Urobilinogen (Normal) mg/dL Ur Leukocyte Esterase (Negative) Urine Microscopic RBC (0-3) per hpf Urine Microscopic WBC (0-3) per hpf Ur Squamous Epith Cells (None-Few) per lpf Urine Bacteria (None-Few) per hpf Hyaline Casts (None-Few) per lpf Ur Culture Indicated? (NO) Blood Type Antibody Screen 03/23/19 03/23/19 03/23/19 Range/Units 13:33 13:33 14:44 WBC (4.3-11.1) K/mcL RBC (4.19-5.50) M/mcL Hgb (12.9-16.9) g/dL Hct (37.5-50.1) % MCV (83.0-100.0) fL MCH (28.0-33.3) pg MCHC (31.6-35.5) g/dL RDW (11.5-14.5) % Plt Count (140-400) K/mcL MPV (9.4-12.4) fL Immature Gran % (0-4) % Seg Neutrophils % % Lymphocytes % % Monocytes % % Eosinophils % % Basophils % % Neutrophils # (1.6-8.9) K/mcL Lymphocytes # (0.6-4.6) K/mcL Monocytes # (0.0-1.3) K/mcL Eosinophils # (0.0-0.6) K/mcL Basophils # (0.0-0.2) K/mcL Platelet Estimate (Normal) Hypochromasia (Not Present) Anisocytosis (Not Present) Sodium (136-145) mEq/L Potassium (3.5-5.1) mEq/L Chloride (98-107) mEq/L Carbon Dioxide (23-29) mEq/L BUN (8-23) mg/dL Creatinine (0.70-1.30) mg/dL Est GFR ( Amer) (> 60) Est GFR (Non-Af Amer) (> 60) BUN/Creatinine Ratio (6-26) Glucose (70-105) mg/dL Calculated Osmolality (280-300) Lactic Acid 1.2 (0.5-2.2) mmol/L Calcium (8.6-10.3) mg/dL Troponin I (< 0.04) ng/mL B-Natriuretic Peptide (Less than 100) pg/mL Urine Color Yellow (Yellow) Urine Clarity Clear (Clear) Urine pH 6.0 (5.0-8.0) pH Units Ur Specific [place] 1.017 (1.010-1.025) Urine Protein 30 H (Neg-Trace) mg/dL Urine Glucose (UA) 250 H (Normal) mg/dL Urine Ketones 15 H (Negative) mg/dL Urine Blood Negative (Negative) Urine Nitrite Negative (Negative) Urine Bilirubin Negative (Negative) Urine Urobilinogen Normal (Normal) mg/dL Ur Leukocyte Esterase Negative (Negative) Urine Microscopic RBC 0-3 (0-3) per hpf Urine Microscopic WBC 0-3 (0-3) per hpf Ur Squamous Epith Cells Many H (None-Few) per lpf Urine Bacteria None Seen (None-Few) per hpf Hyaline Casts None Seen (None-Few) per lpf Ur Culture Indicated? NO (NO) Blood Type O POSITIVE Antibody Screen NEGATIVE Attestation Statement - Attestation Attestation: I examined this patient and my medical decision-making was reviewed with the Resident Physician. I agree with the documented findings, disposition and treatment plan as described except to the extent set forth below. Patient presents to the ED with a chief complaint of shortness of breath. Cough. Change in sputum. History of COPD. He tried home nebulizer treatments with no relief. On exam he is mildly dyspneic. Expiratory wheezing right greater than left. Plan. Nebs and steroids. Temp is 100.1. Septic workup. Patient with a developing infiltrate. He is feeling better on reevaluation after nebs and steroids. He sitting up in bed speaking in full sentences. Drinking a cup of water. Starting IV antibiotics. We will admit to the hosp italist. EKG is sinus tach at 113. There was reviewed with the resident. Unchanged QRS and ST morphologies from a prior EKG in December. Chest X-Ray 03/23/19 13:23 IMPRESSION: 1. Slightly increased right basilar airspace opacity potentially due to infectious or inflammatory bronchiolitis as on the prior CT versus developing pneumonia. 2. Mild bronchial wall thickening potentially due to reactive airways disease or bronchitis. D/ / Rohit Hernandez MD / Rohit Hernandez MD Interpreting Provider: Rohit Hernandez MD
[2019-03-23 14:21] LABS: BUN/Creatinine Ratio 19 (6-26); Blood Urea Nitrogen 14 mg/dL (8-23); Calcium 8.6 mg/dL (8.6-10.3); Carbon Dioxide 33 mEq/L (23-29); Chloride 95 mEq/L (98-107); Glucose 128 mg/dL (70-105); Osmolality,Calculated 294 (280-300); Sodium 141 mEq/L (136-145); Troponin I < 0.03 ng/mL (< 0.04); eGFR For Non-African Americans > 60 (> 60)
[2019-03-23 14:24] LABS: Anisocytosis 2+ (Not Present); Hypochromasia Present (Not Present); Platelet Estimate Normal (Normal)
[2019-03-23 14:55] LABS: Bilirubin,Urine Negative (Negative); Blood,Urine Negative (Negative); Clarity,Urine Clear (Clear); Color,Urine Yellow (Yellow); Glucose,Urine (UA) 250 mg/dL (Normal); Ketones,Urine 15 mg/dL (Negative); Leukocyte Esterase,Urine Negative (Negative); Nitrite,Urine Negative (Negative); Protein,Urine 30 mg/dL (Neg-Trace); Specific Gravity,Urine 1.017 (1.010-1.025); Urobilinogen,Urine Normal (Normal)
[2019-03-23 14:57] LABS: Bacteria,Urine None Seen per hpf (None-Few); Hyaline Casts,Urine None Seen per lpf (None-Few); RBC,Urine 0-3 per hpf (0-3); Squamous Epithelial Cell,Urine Many per lpf (None-Few); WBC,Urine 0-3 per hpf (0-3)
[2019-03-23] MEDS ORDERED: Piperacillin/Tazobactam 3.375 GM in 0.9 % Sodium Chloride Mini Bag 100 ML IVPB ONE (15:11)
[2019-03-23] MEDS ORDERED: Azithromycin 500 MG in D5% in Water 250 ML IVPB ONE (15:11)
--- NOTE | 2019-03-23 16:37 | Internal Med History&Physical ---
Date of Encounter: 03/23/19 Time of Encounter: 16:31 Internal Medicine - H&P: HPI History of present illness: Mr. Rice is a 78 year old male with past medical history of severe COPD, anemia, diabetes presenting for 3 days of worsening shortness of breath associated with nonproductive cough that he describes as similar to his previous COPD exacerbation episodes. Chest X-Ray revealed Slightly increased right basilar airspace opacity potentially due to infectious or inflammatory bronchiolitis as on the prior CT versus developing pneumonia. The patient denying chest pain, palpitation, orthopnea, diaphoresis, paroxysmal nocturnal dyspnea, worsening of lower extremity edema. He was admitted for further evaluation and management of COPD exacerbation Past Med Surg Social Fam HX - Past Medical History Medical history: COPD, GERD, hyperlipidemia, hypertension Additional medical history: anemia, empthsema, gastric ulcer Psychiatric history: anxiety, panic disorder - Past Surgical History Surgical History: cholecystectomy, other Additional surgical history: ERCP, carpal tunnel release, bursectomy left arm - Social History Smoking Status: Former smoker Smokeless Tobacco Status: No (Patient stated he quit about 20 plus yerars ago.) Alcohol use: none Drug use: none - Family History Brother Family Member Ethnicity: Non- Living Status: Still Living Hx Family Cancer: Yes (Colon, Lung) Sister Family Member Ethnicity: Non- Living Status: Hx Family Respiratory Disorders: Yes (COPD) Mother Family Member Ethnicity: Non- Living Status: Hx Family Cardiac Disorders: No Hx Family Respiratory Disorders: No Hx Family Cancer: No Hx Family GI Disorders: No Hx Family Endocrine Disorder: No Hx Family Neuromuscular Disorders: No Hx Family Neurologic Disorders: Yes (Alzheimer's disease) Hx Family HEENT Disorders: No Hx Family Autoimmune Disorders: No Father Family Member Ethnicity: Non- Living Status: Hx Family Cardiac Disorders: No Hx Family Respiratory Disorders: No Hx Family Cancer: No Hx Family GI Disorders: No Hx Family Endocrine Disorder: No Hx Family Neuromuscular Disorders: No Hx Family Neurologic Disorders: No Hx Family HEENT Disorders: No Hx Family Autoimmune Disorders: No Internal Medicine - H&P: Meds ALPRAZolam [Xanax 0.5 MG Tablet] 0.5 mg PO BID PRN 07/17/15 [History] Bimatoprost [Lumigan] 1 drop BOTH EYES HS 07/17/15 [History] Ipratropium/Albuterol Sulfate [Combivent Respimat Inhal [employer]] 1 puff IH QID PRN 07/17/15 [History] Levalbuterol Neb [Xopenex Neb] 0.63 mg IH Q3H PRN 04/17/16 [History] Omeprazole [PriLOSEC] 20 mg PO DAILY 06/14/17 [History] Polyethylene Glycol 3350 [MiraLAX] 17 gm PO DAILY 06/17/17 [History] metFORMIN [Glucophage] 500 mg PO BIDWM 11/28/18 [History] Finasteride [Proscar] 5 mg PO DAILY 01/08/19 [History] Aspirin [Adult Aspirin Regimen] 81 mg PO DAILY 03/23/19 [History] Budesonide/Formoterol 160/4.5 [Symbicort 160/4.5] 2 puff IH BID 03/23/19 [History] Metoprolol [Lopressor] 25 mg PO BID 03/23/19 [History] Azithromycin 500 mg PO DAILY 3 Days #6 tablet 03/25/19 [Rx] predniSONE [PredniSONE] 40 mg PO DAILY #15 tablet 03/25/19 [Rx] Allergy/AdvReac Type Severity Reaction Status Date / Time Sulfa (Sulfonamide Allergy Rash ON Verified 03/23/19 18:10 Antibiotics) STOMACH All Systems PM: A 10-system review of systems was performed and is negative for pertinent findings except as documented above in the HPI. - Constitutional Constitutional: no chills, no fever(s), no night sweats - EENT Eyes: no change in vision, no discharge, no pain, no photophobia Ears: no ear discharge, no ear pain, no tinnitus Nose, mouth and throat: no dysphagia, no nasal discharge, no neck pain, no sore throat - Cardiovascular Cardiovascular ROS IM: dyspnea, no chest pain, no diaphoresis, no lightheadedness, no palpitations, no syncope - Respiratory Respiratory: cough, dyspnea, no wheezing, no excessive phlegm production - Gastrointestinal Gastrointestinal: no abdominal pain, no diarrhea, no hematemesis, no hematochezia, no melena, no nausea, no vomiting - Musculoskeletal Musculoskeletal ROS IM: no numbness, no tingling - Integumentary Integumentary IM: no rash, no unusual bruising - Neurological Neurological ROS: no confusion, no convulsions, no focal weakness, no numbness, no tingling, no tremor(s) - Hematologic/Lymphatic Hematologic/Lymphatic: no easy bruising - Constitutional Vitals: Temp Pulse Resp BP Pulse Ox 100.1 F H 104 18 109/53 95 03/23/19 12:59 03/23/19 16:18 03/23/19 16:18 03/23/19 16:18 03/23/19 16:18 Exam: As below - Head Head exam: Present: atraumatic, normocephalic - Eye Eye exam: Present: PERRL, conjuntiva pink, sclera anicteric Pupils: Present: PERRL - Neck Neck exam general surgery: Present: supple, trachea midline. Absent: lymphadenopathy - Respiratory Respiratory exam: Present: rhonchi. Absent: accessory muscle use, rales, whe ezes - Cardiovascular Cardiovascular exam: Present: RRR, +S1, +S2. Absent: diastolic murmur, gallop, rubs, systolic murmur - GI/Abdominal GI/Abdominal exam: Present: normal bowel sounds, soft, no peritoneal signs. Absent: distended, tenderness - Extremities Exam Extremities exam: Present: warm, radial pulses palpable and symmetrical. Absent: calf tenderness, cyanotic, pedal edema - Neurological Exam Neurological exam: Present: CN II-XII intact, oriented X3, no focal deficits. Absent: pronater drift, facial droop, speech deficit - Skin Skin exam: Present: dry, intact Internal Med - H&P Results - Labs CBC & Chem 7: 03/25/19 05:32 03/25/19 05:32 Labs: Short CBC 03/23/19 Range/Units 13:33 WBC 9.6 (4.3-11.1) K/mcL Hgb 9.6 L (12.9-16.9) g/dL Hct 33.7 L (37.5-50.1) % Plt Count 197 (140-400) K/mcL Neutrophils # 8.3 (1.6-8.9) K/mcL BMP 03/23/19 13:33 Sodium 141 Potassium 4.0 Chloride 95 L Carbon Dioxide 33 H BUN 14 Creatinine 0.74 Glucose 128 H Calcium 8.6 Cardiac Enzymes 03/23/19 Range/Units 13:33 Troponin I < 0.03 (< 0.04) ng/mL Urine 03/23/19 Range/Units 14:44 Urine Color Yellow (Yellow) Urine Clarity Clear (Clear) Urine pH 6.0 (5.0-8.0) pH Units Ur Specific [place] 1.017 (1.010-1.025) Urine Protein 30 H (Neg-Trace) mg/dL Urine Glucose (UA) 250 H (Normal) mg/dL - Impressions ITS Impressions Chest X-Ray 03/23/19 13:23 IMPRESSION: 1. Slightly increased right basilar airspace opacity potentially due to infectious or inflammatory bronchiolitis as on the prior CT versus developing pneumonia. 2. Mild bronchial wall thickening potentially due to reactive airways disease or bronchitis. D/ / Rohit Hernandez MD / Rohit Hernandez MD Interpreting Provider: Rohit Hernandez MD - Assessment and Plan (1) Acute exacerbation of chronic obstructive airways disease Status: Acute Assessment and plan: - SOB due to * COPD exacerbation caused by URTI, allergen exposure, medication nonocompliance *Pneumonia - infiltrate on CXR PLAN: - Aerosols q 4 hr and PRN SOB - Solu-medrol 40 mg IV q 6 hr - O2 to keep SpO2 higher than 92% (SpO higher than 95% if CAD) - CBCD, BMP in AM - Sputum Gram stain, C+S - Robitussin 10 cc PO q 4 hr - Tylenol 650 mg PO q 4-6 hr PRN pain/fever - Heparin 5000 U SQ BID - Home meds - check the list and restart - Azithromycine 500 IV daily (2) Anemia Status: Chronic Qualifiers: Anemia type: 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) (3) Diabetes type 2, uncontrolled Status: Chronic Qualifiers: Glycemic state: with hyperglycemia Qualified Code(s): E11.65 - Type 2 diabetes mellitus with hyperglycemia (4) GERD (gastroesophageal reflux disease) Status: Chronic Qualifiers: Esophagitis presence: without esophagitis Qualified Code(s): K21.9 - Gastro-esophageal reflux disease without esophagitis (5) HTN (hypertension) Status: Chronic Qualifiers: Hypertension type: essential hypertension Qualified Code(s): I10 - Essential (primary) hypertension (6) DVT prophylaxis Status: Acute - Time Spent With Patient Total time spent is greater than 50% in coordination of care (as documented) at patient's floor/unit and/or counseling patient:
[2019-03-23] MEDS ORDERED: Naloxone 0.4 MG/ML INJ IVP PRN (18:35)
[2019-03-23] MEDS ORDERED: Mag Hydrox/Al Hydrox/Simeth 30 ML UDC PO PRN (18:35)
[2019-03-23] MEDS ORDERED: *HR* HYDROcodone/Acet 5/325 mg TABLET PO PRN (18:35)
[2019-03-23] MEDS ORDERED: Ondansetron ODT 4 MG TAB.RAPDIS SL PRN (18:35)
[2019-03-23] MEDS ORDERED: Acetaminophen 325 MG TABLET PO PRN (18:35)
[2019-03-23] MEDS: Ipratropium/Albuterol Neb 3 ML IH SCH (22:41)
[2019-03-23] MEDS: MethylPREDNISolone 40 MG/ML VIAL IVP SCH (23:08)
[2019-03-23] MEDS ORDERED: Melatonin 3 MG TABLET PO PRN (23:30)
[2019-03-23] MEDS: ALPRAZolam 0.5 MG TABLET PO PRN (23:57)
[2019-03-24 02:37] LABS: Basophils % 0.1 %; Mean Corpuscular HGB Conc 28.6 g/dL (31.6-35.5); Red Blood Count 3.46 M/mcL (4.19-5.50); Segmented Neutrophils % 95.4 %
[2019-03-24 02:39] LABS: Hematocrit 32.2 % (37.5-50.1); Hemoglobin 9.2 g/dL (12.9-16.9); Immature Granulocytes % 0.4 % (0-4); Lymphocytes # 0.2 K/mcL (0.6-4.6); Lymphocytes % 1.9 %; Mean Corpuscular Hemoglobin 26.6 pg (28.0-33.3); Mean Corpuscular Volume 93.1 fL (83.0-100.0); Mean Platelet Volume 12.1 fL (9.4-12.4); Monocytes # 0.2 K/mcL (0.0-1.3); Monocytes % 2.2 %; Platelet Count 212 K/mcL (140-400); Red Cell Distribution Width 23.9 % (11.5-14.5)
[2019-03-24 02:42] LABS: Neutrophils # 9.2 K/mcL (1.6-8.9)
[2019-03-24 02:43] LABS: Alanine Aminotransferase 10 Units/L (7-52); Albumin 3.8 g/dL (3.5-5.7); Albumin/Globulin Ratio 1.4 (1.1-2.2); Alkaline Phosphatase 81 Units/L (34-104); Aspartate Amino Transferase 15 Units/L (13-39); BUN/Creatinine Ratio 23 (6-26); Bilirubin,Total 0.2 mg/dL (0.3-1.0); Blood Urea Nitrogen 19 mg/dL (8-23); Calcium 8.5 mg/dL (8.6-10.3); Carbon Dioxide 30 mEq/L (23-29); Chloride 99 mEq/L (98-107); Chol/HDL Ratio 3.5 (0-4.9); Cholesterol 152 mg/dL (< 200); Globulin 2.7 g/dL (2.4-3.5); Glucose 197 mg/dL (70-105); HDL Cholesterol 43 mg/dL (40-59); LDL Cholesterol,Calculated 101 mg/dL (0-99); Magnesium 2.1 mg/dL (1.6-2.6); Osmolality,Calculated 298 (280-300); Phosphorous 1.5 mg/dL (2.7-4.5); Potassium 4.1 mEq/L (3.5-5.1); Sodium 140 mEq/L (136-145); Total Protein 6.5 g/dL (6.4-8.9); Triglycerides 42 mg/dL (< 150); eGFR For Non-African Americans > 60 (> 60)
[2019-03-24 02:44] LABS: INR 1.1; Prothrombin Time 12.1 Seconds (9.4-12.1)
[2019-03-24 02:47] LABS: Activated Partial Thrombo Time 31.7 Seconds (26.0-36.0)
[2019-03-24 03:06] LABS: Anisocytosis 1+ (Not Present); Hypochromasia Present (Not Present); Platelet Estimate Normal (Normal)
[2019-03-24] MEDS: Ipratropium/Albuterol Neb 3 ML IH SCH ×5 (04:11→23:36)
[2019-03-24] MEDS: MethylPREDNISolone 40 MG/ML VIAL IVP SCH ×2 (05:39→17:38)
[2019-03-24] MEDS ORDERED: Levalbuterol Neb 0.63 MG/3 ML IH PRN (08:19)
[2019-03-24] MEDS ORDERED: Dextrose Gel 15 GM/37.5 ML TUBE PO PRN ×2 (08:22)
[2019-03-24] MEDS ORDERED: D5% in Water 1,000 ML IVC PRN (08:22)
[2019-03-24] MEDS ORDERED: *HR* Dextrose 50 % in Water (Syg) 50 ML SYRINGE IVP PRN (08:22)
[2019-03-24] MEDS: Finasteride 5 MG TABLET PO SCH (10:21)
[2019-03-24] MEDS: Aspirin Enteric Coated 81 MG Tablet PO SCH (10:22)
[2019-03-24] MEDS: Budesonide/Formoterol 160/4.5 1 PUFF INH IH SCH ×2 (11:34→20:54)
[2019-03-24] MEDS: Insulin LISPRO 300 UNITS/3 ML VIAL SQ SCH ×2 (11:56→17:38)
--- NOTE | 2019-03-24 12:15 | Internal Med Progress Note ---
Hospitalist Progress Note - Encounter Date of Encounter: 03/24/19 Time of Encounter: 08:30 - Subjective Interval History: States that he feels better than yesterday in terms of his breathing. Denies any episodes of choking or coughing on eating. No fever overnight. - Exam Vitals: Temp Pulse Resp BP Pulse Ox 98.4 F 82 18 122/71 96 03/24/19 11:08 03/24/19 11:08 03/24/19 11:39 03/24/19 11:08 03/24/19 11:39 Exam: General: Alert and oriented, not in acute distress and speaking in full sentences Cardiovascular:Normal S1 & S2, No JVD. Pulse regular. Lungs: scattered wheezes bilaterally, unable to appreciate significant rhonchi Abdomen:Soft, non-tender, no rigidity. Extremities:No deformity or swelling Neurological:Normal cognition and motor skills. Non-focal - Assessment and Plan (1) Acute exacerbation of chronic obstructive airways disease Current Visit: Yes Status: Acute Assessment and Plan: presented with SOB, cough, with small amount of purulent sputum no leukocytosis CXR reportedly showed slightly increased R basilar airspace but it appears relatively stable upon my review compared to CXR on 12/2018 procalcitonin also normal started on steroid, azithromycin, bronchodilators, continue given the side of the lung that shows haziness, will obtain speech eval to rule out aspiration. If he shows any evidence of silent aspiraton, would consider starting Unasyn check RIP (2) Diabetes type 2, uncontrolled Current Visit: No Status: Chronic Assessment and Plan: On metformin 500 mg twice a day at home, hold Low-dose sliding scale (3) Anemia Current Visit: No Status: Chronic Assessment and Plan: Chronic, hemoglobin at his baseline (4) GERD (gastroesophageal reflux disease) Current Visit: No Status: Chronic Assessment and Plan: Resume home meds (5) HTN (hypertension) Current Visit: No Status: Chronic Assessment and Plan: Continue home meds (6) DVT prophylaxis Current Visit: No Status: Acute Assessment and Plan: Subcutaneous heparin - Time Spent with Patient Total time spent is greater than 50% in coordination of care (as documented) at patient's floor/unit and/or counseling patient: 25 - 35 minutes Plan of Care Discussed with: patient Internal Medicine: Result - Labs CBC & Chem 7: 03/24/19 00:48 03/24/19 00:48 Labs: Short CBC 03/23/19 03/24/19 Range/Units 13:33 00:48 WBC 9.6 9.6 (4.3-11.1) K/mcL Hgb 9.6 L 9.2 L (12.9-16.9) g/dL Hct 33.7 L 32.2 L (37.5-50.1) % Plt Count 197 212 (140-400) K/mcL Neutrophils # 8.3 9.2 H (1.6-8.9) K/mcL BMP 03/23/19 03/24/19 13:33 00:48 Sodium 141 140 Potassium 4.0 4.1 Chloride 95 L 99 Carbon Dioxide 33 H 30 H BUN 14 19 Creatinine 0.74 0.82 Glucose 128 H 197 H Calcium 8.6 8.5 L Cardiac Enzymes 03/23/19 03/23/19 03/24/19 Range/Units 13:33 19:22 00:48 Troponin I < 0.03 < 0.03 < 0.03 (< 0.04) ng/mL 03/24/19 Range/Units 07:12 Troponin I < 0.03 (< 0.04) ng/mL Liver Function 03/24/19 Range/Units 00:48 Total Bilirubin 0.2 L (0.3-1.0) mg/dL AST 15 (13-39) Units/L ALT 10 (7-52) Units/L Alkaline Phosphatase 81 (34-104) Units/L Albumin 3.8 (3.5-5.7) g/dL Urine 03/23/19 Range/Units 14:44 Urine Color Yellow (Yellow) Urine Clarity Clear (Clear) Urine pH 6.0 (5.0-8.0) pH Units Ur Specific [place] 1.017 (1.010-1.025) Urine Protein 30 H (Neg-Trace) mg/dL Urine Glucose (UA) 250 H (Normal) mg/dL - ABG Interpretation ABG results: PT/INR, D-dimer PT 12.1 Seconds (9.4-12.1) 03/24/19 00:48 - Impressions Impressions Chest X-Ray 03/23/19 13:23 IMPRESSION: 1. Slightly increased right basilar airspace opacity potentially due to infectious or inflammatory bronchiolitis as on the prior CT versus developing pneumonia. 2. Mild bronchial wall thickening potentially due to reactive airways disease or bronchitis. D/ / Rohit Hernandez MD / Rohit Hernandez MD Interpreting Provider: Rohit Hernandez MD Consult Discharge Plan - Plan Referrals: Khai Machado MD [Primary Care Provider] - (2) Diabetes type 2, uncontrolled Qualifiers: Glycemic state: with hyperglycemia Qualified Code(s): E11.65 - Type 2 d iabetes mellitus with hyperglycemia (3) Anemia Qualifiers: Anemia type: 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) (4) GERD (gastroesophageal reflux disease) Qualifiers: Esophagitis presence: without esophagitis Qualified Code(s): K21.9 - Gastro-esophageal reflux disease without esophagitis (5) HTN (hypertension) Qualifiers: Hypertension type: essential hypertension Qualified Code(s): I10 - Essential (primary) hypertension
[2019-03-24 12:32] LABS: Adenovirus Not Detected (Not Detect); Coronavirus 229E Not Detected (Not Detect); Coronavirus HKU1 Not Detected (Not Detect); Coronavirus NL63 Not Detected (Not Detect)
[2019-03-24 12:33] LABS: Bordetella Pertussis Not Detected (Not Detect); Chlamydophila pneumoniae Not Detected (Not Detect); Coronavirus OC43 Not Detected (Not Detect); Human Metapneumovirus Not Detected (Not Detect); Human Rhinovirus/Enterovirus DETECTED (Not Detect); Influenza A Subtype 2009 H1 Not Detected (Not Detect); Influenza A Untypeable Not Detected (Not Detect); Influenza B Not Detected (Not Detect); Mycoplasma pneumoniae Not Detected (Not Detect); Parainfluenza Virus 1 Not Detected (Not Detect); Parainfluenza Virus 2 Not Detected (Not Detect); Parainfluenza Virus 3 Not Detected (Not Detect); Parainfluenza Virus 4 Not Detected (Not Detect); Respiratory Syncytial Virus Not Detected (Not Detect)
[2019-03-24] MEDS ORDERED: Azithromycin 500 MG in D5% in Water 250 ML IVPB SCH (16:00)
[2019-03-24] MEDS: *HR* Heparin 5,000 UNIT/ML VIAL SQ SCH (17:37)
[2019-03-24] MEDS ORDERED: LUMIGAN EYE OP SCH (21:00)
[2019-03-24] MEDS ORDERED: Insulin LISPRO 300 UNITS/3 ML VIAL SQ SCH (21:00)
[2019-03-24] MEDS: ALPRAZolam 0.5 MG TABLET PO PRN (21:01)
[2019-03-25] MEDS: Ipratropium/Albuterol Neb 3 ML IH SCH ×2 (05:02→08:00)
[2019-03-25] MEDS: *HR* Heparin 5,000 UNIT/ML VIAL SQ SCH (05:47)
[2019-03-25] MEDS: MethylPREDNISolone 40 MG/ML VIAL IVP SCH (05:47)
[2019-03-25 06:05] LABS: Basophils % 0.1 %; Hematocrit 31.9 % (37.5-50.1); Hemoglobin 9.3 g/dL (12.9-16.9); Immature Granulocytes % 0.3 % (0-4); Lymphocytes # 0.7 K/mcL (0.6-4.6); Lymphocytes % 6.6 %; Mean Corpuscular HGB Conc 29.2 g/dL (31.6-35.5); Mean Corpuscular Hemoglobin 26.7 pg (28.0-33.3); Mean Corpuscular Volume 91.7 fL (83.0-100.0); Mean Platelet Volume 11.8 fL (9.4-12.4); Monocytes # 0.6 K/mcL (0.0-1.3); Monocytes % 5.6 %; Platelet Count 222 K/mcL (140-400); Red Blood Count 3.48 M/mcL (4.19-5.50); Red Cell Distribution Width 23.8 % (11.5-14.5); Segmented Neutrophils % 87.4 %
[2019-03-25 06:25] LABS: BUN/Creatinine Ratio 31 (6-26); Blood Urea Nitrogen 22 mg/dL (8-23); Calcium 8.8 mg/dL (8.6-10.3); Carbon Dioxide 32 mEq/L (23-29); Chloride 101 mEq/L (98-107); Glucose 138 mg/dL (70-105); Osmolality,Calculated 294 (280-300); Potassium 4.2 mEq/L (3.5-5.1); Sodium 139 mEq/L (136-145); eGFR For Non-African Americans > 60 (> 60)
[2019-03-25 06:40] LABS: Hypochromasia Present (Not Present)
[2019-03-25 06:41] LABS: Anisocytosis 2+ (Not Present)
[2019-03-25 07:53] VITALS: BP 117/51
[2019-03-25] MEDS: Budesonide/Formoterol 160/4.5 1 PUFF INH IH SCH (08:00)
[2019-03-25] MEDS: Finasteride 5 MG TABLET PO SCH (08:24)
[2019-03-25] MEDS: Insulin LISPRO 300 UNITS/3 ML VIAL SQ SCH (08:24)
[2019-03-25] MEDS: Aspirin Enteric Coated 81 MG Tablet PO SCH (08:24)
--- NOTE | 2019-03-25 10:22 | Discharge Summary ---
- NOTES TO OUTPATIENT PROVIDER Notes to Outpatient Provider: Follow-up with PCP and pulmonary Orders not resulted at time of discharge: Pending orders 03/23/19 13:23 ECG 12 lead ECG [ECG] Stat 03/23/19 14:27 Culture,Blood [BC] Stat 03/25/19 06:00 MRSA Surveillance Screen [MOLMIC] Routine Date of Encounter: 03/25/19 Time of Encounter: 08:30 - Discharge Diagnosis (1) Acute exacerbation of chronic obstructive airways disease Priority: Primary Status: Acute (2) Diabetes type 2, uncontrolled Priority: Secondary Status: Chronic Qualifiers: Glycemic state: with hyperglycemia Qualified Code(s): E11.65 - Type 2 diabetes mellitus with hyperglycemia (3) Anemia Priority: Secondary Status: Chronic Qualifiers: Anemia type: 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) (4) GERD (gastroesophageal reflux disease) Priority: Secondary Status: Chronic Qualifiers: Esophagitis presence: without esophagitis Qualified Code(s): K21.9 - Gastro-esophageal reflux disease without esophagitis (5) HTN (hypertension) Priority: Secondary Status: Chronic Qualifiers: Hypertension type: essential hypertension Qualified Code(s): I10 - Essential (primary) hypertension (6) DVT prophylaxis Priority: Secondary Status: Acute Hospital course: Mr. Rice is a 78 year old male with history of severe COPD on home oxygen and chronic steroid, diabetes, who was admitted for acute exacerbation of COPD. There was an initial concern for possible R basilar PNA but he did not have any fever/leukocytosis with negative procalcitonin. Pt also tested +ve for Rhinovirus. Speech eval also did not reveal any evidence of aspiration. Clinically improved with IV steroid, azithromycin, bronchodilators, and will be discharged home on a total of 5 days of macrolide and 2 week steroid taper back to his home dose of 10mg. Follow up with Pulmonology as an outpatient. Discharge discussed with: patient, nurse - Time Spent with Patient Total time spent providing and/or coordinating discharge services: 31 mins - Discharge Medications Prescriptions: New Azithromycin 500 mg PO DAILY 3 Days #6 tablet predniSONE [PredniSONE] 40 mg PO DAILY #15 tablet Continued Bimatoprost [Lumigan] 1 drop BOTH EYES HS Ipratropium/Albuterol Sulfate [Combivent Respimat Inhal Vista] 1 puff IH QID PRN PRN Reason: Shortness Of Breath ALPRAZolam [Xanax 0.5 MG Tablet] 0.5 mg PO BID PRN PRN Reason: Anxiety Levalbuterol Neb [Xopenex Neb] 0.63 mg IH Q3H PRN PRN Reason: Shortness Of Breath Omeprazole [PriLOSEC] 20 mg PO DAILY Polyethylene Glycol 3350 [MiraLAX] 17 gm PO DAILY metFORMIN [Glucophage] 500 mg PO BIDWM Finasteride [Proscar] 5 mg PO DAILY Aspirin [Adult Aspirin Regimen] 81 mg PO DAILY Budesonide/Formoterol 160/4.5 [Symbicort 160/4.5] 2 puff IH BID Metoprolol [Lopressor] 25 mg PO BID Discontinued predniSONE [PredniSONE] 10 mg PO DAILY Home Medications: ALPRAZolam [Xanax 0.5 MG Tablet] 0.5 mg PO BID PRN 07/17/15 [History] Bimatoprost [Lumigan] 1 drop BOTH EYES HS 07/17/15 [History] Ipratropium/Albuterol Sulfate [Combivent Respimat Inhal Vista] 1 puff IH QID PRN 07/17/15 [History] Levalbuterol Neb [Xopenex Neb] 0.63 mg IH Q3H PRN 04/17/16 [History] Omeprazole [PriLOSEC] 20 mg PO DAILY 06/14/17 [History] Polyethylene Glycol 3350 [MiraLAX] 17 gm PO DAILY 06/17/17 [History] metFORMIN [Glucophage] 500 mg PO BIDWM 11/28/18 [History] Finasteride [Proscar] 5 mg PO DAILY 01/08/19 [History] Aspirin [Adult Aspirin Regimen] 81 mg PO DAILY 03/23/19 [History] Budesonide/Formoterol 160/4.5 [Symbicort 160/4.5] 2 puff IH BID 03/23/19 [History] Metoprolol [Lopressor] 25 mg PO BID 03/23/19 [History] Azithromycin 500 mg PO DAILY 3 Days #6 tablet 03/25/19 [Rx] predniSONE [PredniSONE] 40 mg PO DAILY #15 tablet 03/25/19 [Rx] Allergies/Adverse Reactions: Allergy/AdvReac Type Severity Reaction Status Date / Time Sulfa (Sulfonamide Allergy Rash ON Verified 03/23/19 18:10 Antibiotics) STOMACH Date of admission: 03/23/19 17:35 Primary care physician: Khai Machado MD Consults: 03/23/19 18:40 Consult to Nurse Navigator [CONS] Routine Comment: 03/24/19 10:43 Consult to Speech Therapy [CONS] Routine Comment: Evaluate, develop and implement POC Reason for Consult: recurrent R basilar PNA and COPD exacerbation ?aspiration Call Completed: No - Constitutional Vitals: Temp Pulse Resp BP Pulse Ox 97.7 F 80 20 117/51 98 03/25/19 07:45 03/25/19 07:45 03/25/19 08:06 03/25/19 07:45 03/25/19 08:06 Exam: General: Alert and oriented, not in acute distress and speaking in full sentences Cardiovascular:Normal S1 & S2, No JVD. Pulse regular. Lungs: Minimal wheezes bilaterally, no rhonchi Abdomen:Soft, non-tender, no rigidity. Extremities:No deformity or swelling Neurological:Normal cognition and motor skills. Non-focal - Patient Status Disposition: Home, Self-Care Condition: Fair Functional capacity at discharge: independent ambulation Overall status at discharge: patient is progressing back to baseline - Discharge Instructions Instructions: Chronic Obstructive Pulmonary Disease (DC) Follow Up With: Khai Machado MD [Primary Care Provider] - Van Correa MD [Partnered Physician] - - Diet and Activity Activity: resume usual activities as tolerated Diet: diabetic diet
--- NOTE | 2019-03-25 19:06 | Electrocardiograph Report ---
[facility] Test Date: 2019-03-23 Pat Name: Randy Rice Department: [id number] Room: 2A62 Gender: M Hide Handler: : [id number] Requested By: Jeannie See Order Number: [id number] Reading MD: Ezekiel Aguila Measurements Intervals [place] Rate: 113 P: 81 GA: 146 QRS: 79 QRSD: 81 T: 47 QT: 290 QTc: 398 Interpretive Statements Sinus tachycardia Probable left atrial enlargement Minimal ST depression, inferior leads, consider ischemia Electronically Signed On 03-25-2019 19:04:50 EDT by Ezekiel Aguila
== END 2019-03-25 11:11 | disposition home or self-care (01) | DRG 192 ==
LOC: 2ANU 12:48 → EMEROOARM 12:48 → 2ANU 17:20 → SUATTDRO 17:35
PROVIDERS: ADMIT Internal Medicine Nephrology; ATTEND Internal Medicine

== ENCOUNTER 2019-08-12 17:12 | Inpatient (IN) ==
[2019-08-12] MEDS ORDERED: Ipratropium/Albuterol Neb 3 ML IH STA (17:41)
[2019-08-12] MEDS ORDERED: 0.9 % Sodium Chloride 1,000 ML IVC STA ×2 (17:41→19:39)
[2019-08-12] MEDS ORDERED: methylPREDNISolone 125 MG/2 ML VIAL IVP STA (17:41)
[2019-08-12] MEDS ORDERED: Isovue-370 500 ML BOTTLE IVP ONE (17:41)
[2019-08-12 17:48] LABS: Hematocrit 35.5 % (37.5-50.1); Hemoglobin 10.9 g/dL (12.9-16.9); Mean Corpuscular HGB Conc 30.7 g/dL (31.6-35.5); Mean Corpuscular Volume 97.8 fL (83.0-100.0); Mean Platelet Volume 10.6 fL (9.4-12.4); Monocytes # 0.4 K/mcL (0.0-1.3); Platelet Count 163 K/mcL (140-400); Red Blood Count 3.63 M/mcL (4.19-5.50); Red Cell Distribution Width 13.5 % (11.5-14.5); White Blood Count 6.6 K/mcL (4.3-11.1)
[2019-08-12 17:54] LABS: Bilirubin,Urine Small (Negative); Blood,Urine Small (Negative); Clarity,Urine Cloudy (Clear); Color,Urine Yellow (Yellow); Glucose,Urine (UA) 250 mg/dL (Normal); Ketones,Urine 40 mg/dL (Negative); Leukocyte Esterase,Urine Negative (Negative); Nitrite,Urine Negative (Negative); PH,Urine 5.5 pH Units (5.0-8.0); Protein,Urine 100 mg/dL (Neg-Trace); Specific Gravity,Urine 1.025 (1.010-1.025); Urobilinogen,Urine Normal (Normal)
[2019-08-12 17:55] LABS: RBC,Urine 0-3 per hpf (0-3); Squamous Epithelial Cell,Urine Many per lpf (None-Few)
[2019-08-12 18:11] LABS: Dohle Bodies Present (Not Present); Neutrophils # 6.2 K/mcL (1.6-8.9); Platelet Estimate Normal (Normal); Toxic Granulation Present (Not Present); Toxic Vacuolation Present (Not Present)
[2019-08-12 18:12] LABS: Alanine Aminotransferase 8 Units/L (7-52); Albumin 3.6 g/dL (3.5-5.7); Albumin/Globulin Ratio 1.2 (1.1-2.2); Alkaline Phosphatase 72 Units/L (34-104); Aspartate Amino Transferase 13 Units/L (13-39); BUN/Creatinine Ratio 23 (6-26); Bilirubin,Direct 0.1 mg/dL (0.0-0.2); Bilirubin,Indirect 0.3 mg/dL (0.0-1.2); Bilirubin,Total 0.4 mg/dL (0.3-1.0); Blood Urea Nitrogen 21 mg/dL (8-23); Calcium 9.2 mg/dL (8.6-10.3); Carbon Dioxide 32 mEq/L (23-29); Chloride 92 mEq/L (98-107); Globulin 3.1 g/dL (2.4-3.5); Glucose 132 mg/dL (70-105); Osmolality,Calculated 285 (280-300); Potassium 4.1 mEq/L (3.5-5.1); Sodium 135 mEq/L (136-145); Total Protein 6.7 g/dL (6.4-8.9); eGFR For African Americans > 60 (> 60); eGFR For Non-African Americans > 60 (> 60)
[2019-08-12 18:13] LABS: Troponin I < 0.03 ng/mL (< 0.04)
[2019-08-12 18:26] LABS: Bacteria,Urine Few per hpf (None-Few); Hyaline Casts,Urine Moderate per lpf (None-Few); Yeast,Urine Few per hpf (None Seen)
[2019-08-12] MEDS ORDERED: cefTRIAXone 1,000 MG in Water for inj. (sterile) 10 ML IVP ONE (19:39)
[2019-08-12] MEDS ORDERED: Azithromycin 500 MG in 0.9 % Sodium Chloride 250 ML IVPB ONE (19:40)
[2019-08-12] MEDS ORDERED: Acetaminophen 325 MG TABLET PO PRN (20:21)
[2019-08-12] MEDS ORDERED: GuaiFENesin Liq 200 MG/10 ML UDC PO PRN (20:24)
[2019-08-13] MEDS: Ipratropium/Albuterol Neb 3 ML IH SCH ×6 (00:08→20:34)
[2019-08-13] MEDS: ALPRAZolam 0.5 MG TABLET PO PRN ×2 (00:17→20:45)
[2019-08-13] MEDS: Ringers Solution, Lactated 1,000 ML IVC SCH ×2 (00:18→18:10)
[2019-08-13] MEDS: Latanoprost 2.5 ML BOTTLE BOTH EYES SCH ×2 (00:20→20:45)
[2019-08-13] MEDS: *HR* Heparin 5,000 UNIT/ML VIAL SQ SCH ×2 (05:09→16:16)
[2019-08-13] MEDS ORDERED: Dextrose Gel 15 GM/37.5 ML TUBE PO PRN ×2 (06:51)
[2019-08-13] MEDS ORDERED: *HR* Dextrose 50 % in Water (Syg) 50 ML SYRINGE IVP PRN (06:51)
[2019-08-13] MEDS ORDERED: D5% in Water 1,000 ML IVC PRN (06:51)
[2019-08-13 07:13] LABS: Hematocrit 34.7 % (37.5-50.1); Hemoglobin 10.4 g/dL (12.9-16.9); Lymphocytes # 0.1 K/mcL (0.6-4.6); Mean Corpuscular Hemoglobin 29.7 pg (28.0-33.3); Mean Corpuscular Volume 99.1 fL (83.0-100.0); Mean Platelet Volume 11.1 fL (9.4-12.4); Monocytes # 0.3 K/mcL (0.0-1.3); Platelet Count 165 K/mcL (140-400); Red Cell Distribution Width 13.7 % (11.5-14.5); White Blood Count 6.8 K/mcL (4.3-11.1)
[2019-08-13 07:22] LABS: BUN/Creatinine Ratio 23 (6-26); Blood Urea Nitrogen 18 mg/dL (8-23); Calcium 8.9 mg/dL (8.6-10.3); Carbon Dioxide 31 mEq/L (23-29); Chloride 99 mEq/L (98-107); Glucose 171 mg/dL (70-105); Magnesium 1.9 mg/dL (1.6-2.6); Osmolality,Calculated 290 (280-300); Phosphorous 3.1 mg/dL (2.7-4.5); Potassium 4.2 mEq/L (3.5-5.1); Sodium 137 mEq/L (136-145); eGFR For African Americans > 60 (> 60); eGFR For Non-African Americans > 60 (> 60)
[2019-08-13 07:52] LABS: Neutrophils # 6.4 K/mcL (1.6-8.9)
[2019-08-13 07:56] LABS: Platelet Estimate Normal (Normal); Toxic Granulation Present (Not Present)
[2019-08-13] MEDS: predniSONE 20 MG TABLET PO SCH (08:40)
[2019-08-13] MEDS: Multivit/Ca/Min/Fe/FA 1 TAB TABLET PO SCH (08:41)
[2019-08-13] MEDS: Finasteride 5 MG TABLET PO SCH (08:42)
[2019-08-13] MEDS: Aspirin Enteric Coated 81 MG Tablet PO SCH (08:43)
[2019-08-13] MEDS: Insulin LISPRO 300 UNITS/3 ML VIAL SQ SCH ×4 (08:48→20:46)
[2019-08-13] MEDS ORDERED: levoFLOXacin 750 MG/150 ML 750 MG/150 ML BAG IVPB SCH (09:00)
[2019-08-13] MEDS: cefTRIAXone 2,000 MG in Water for inj. (sterile) 20 ML IVP SCH (16:03)
[2019-08-13] MEDS: Azithromycin 500 MG in 0.9 % Sodium Chloride 250 ML IVPB SCH (20:45)
[2019-08-14] MEDS: Ipratropium/Albuterol Neb 3 ML IH SCH ×7 (00:51→23:32)
[2019-08-14] MEDS: *HR* Heparin 5,000 UNIT/ML VIAL SQ SCH ×2 (05:36→19:18)
[2019-08-14 08:10] LABS: Adenovirus Not Detected (Not Detect); Bordetella Pertussis Not Detected (Not Detect); Chlamydophila pneumoniae Not Detected (Not Detect); Coronavirus 229E Not Detected (Not Detect); Coronavirus HKU1 Not Detected (Not Detect); Coronavirus NL63 Not Detected (Not Detect); Coronavirus OC43 Not Detected (Not Detect); Human Metapneumovirus Not Detected (Not Detect); Human Rhinovirus/Enterovirus Not Detected (Not Detect); Influenza A Subtype 2009 H1 Not Detected (Not Detect); Influenza A Untypeable Not Detected (Not Detect); Influenza B Not Detected (Not Detect); Mycoplasma pneumoniae Not Detected (Not Detect); Parainfluenza Virus 1 Not Detected (Not Detect); Parainfluenza Virus 2 Not Detected (Not Detect); Parainfluenza Virus 3 Not Detected (Not Detect); Parainfluenza Virus 4 Not Detected (Not Detect); Respiratory Syncytial Virus Not Detected (Not Detect)
[2019-08-14] MEDS: ALPRAZolam 0.5 MG TABLET PO PRN ×2 (08:17→21:05)
[2019-08-14] MEDS: predniSONE 20 MG TABLET PO SCH (08:17)
[2019-08-14] MEDS: Finasteride 5 MG TABLET PO SCH (08:18)
[2019-08-14] MEDS: Multivit/Ca/Min/Fe/FA 1 TAB TABLET PO SCH (08:18)
[2019-08-14] MEDS: Aspirin Enteric Coated 81 MG Tablet PO SCH (08:18)
[2019-08-14 12:58] LABS: ABG Base Excess 7 mEq/L (-2 to 3); ABG HCO3 35 mEq/L (21-27); ABG Oxygen Saturation 95 % (95-98); ABG PCO2 66 mmHg (35-45); ABG PH 7.34 pH Units (7.32-7.45); ABG PO2 83 mmHg (85-104); ABG TCO2 37 mEq/L (20-26)
[2019-08-14] MEDS: Insulin LISPRO 300 UNITS/3 ML VIAL SQ SCH ×4 (13:33→21:05)
[2019-08-14] MEDS: cefTRIAXone 2,000 MG in Water for inj. (sterile) 20 ML IVP SCH (16:11)
[2019-08-14] MEDS: MethylPREDNISolone 40 MG/ML VIAL IVP SCH ×2 (19:18→23:41)
[2019-08-14] MEDS: Azithromycin 500 MG in 0.9 % Sodium Chloride 250 ML IVPB SCH (21:06)
[2019-08-14] MEDS: Latanoprost 2.5 ML BOTTLE BOTH EYES SCH (21:11)
[2019-08-15] MEDS: Ipratropium/Albuterol Neb 3 ML IH SCH ×6 (03:33→23:55)
[2019-08-15 03:53] LABS: Hemoglobin 9.3 g/dL (12.9-16.9); Mean Corpuscular Hemoglobin 29.2 pg (28.0-33.3); Mean Corpuscular Volume 97.5 fL (83.0-100.0); Mean Platelet Volume 10.3 fL (9.4-12.4); Platelet Count 200 K/mcL (140-400); Red Blood Count 3.18 M/mcL (4.19-5.50); Red Cell Distribution Width 13.6 % (11.5-14.5); White Blood Count 6.5 K/mcL (4.3-11.1)
[2019-08-15 04:14] LABS: BUN/Creatinine Ratio 36 (6-26); Blood Urea Nitrogen 24 mg/dL (8-23); Calcium 8.9 mg/dL (8.6-10.3); Carbon Dioxide 36 mEq/L (23-29); Chloride 97 mEq/L (98-107); Glucose 174 mg/dL (70-105); Osmolality,Calculated 298 (280-300); Potassium 4.3 mEq/L (3.5-5.1); Sodium 140 mEq/L (136-145); eGFR For African Americans > 60 (> 60); eGFR For Non-African Americans > 60 (> 60)
[2019-08-15] MEDS: *HR* Heparin 5,000 UNIT/ML VIAL SQ SCH ×2 (05:29→17:40)
[2019-08-15] MEDS: MethylPREDNISolone 40 MG/ML VIAL IVP SCH ×3 (05:29→17:40)
[2019-08-15] MEDS: Multivit/Ca/Min/Fe/FA 1 TAB TABLET PO SCH (08:04)
[2019-08-15] MEDS: Finasteride 5 MG TABLET PO SCH (08:04)
[2019-08-15] MEDS: Aspirin Enteric Coated 81 MG Tablet PO SCH (08:06)
[2019-08-15] MEDS: Insulin LISPRO 300 UNITS/3 ML VIAL SQ SCH ×5 (08:06→21:02)
[2019-08-15] MEDS: cefTRIAXone 2,000 MG in Water for inj. (sterile) 20 ML IVP SCH (16:09)
[2019-08-15] MEDS: Budesonide/Formoterol 160/4.5 1 PUFF INH IH SCH (19:55)
[2019-08-15] MEDS: Azithromycin 500 MG in 0.9 % Sodium Chloride 250 ML IVPB SCH (20:40)
[2019-08-15] MEDS: ALPRAZolam 0.5 MG TABLET PO PRN (20:49)
[2019-08-15] MEDS: Latanoprost 2.5 ML BOTTLE BOTH EYES SCH (20:52)
[2019-08-16] MEDS: MethylPREDNISolone 40 MG/ML VIAL IVP SCH ×3 (00:36→11:24)
[2019-08-16] MEDS: *HR* Heparin 5,000 UNIT/ML VIAL SQ SCH ×2 (00:37→17:15)
[2019-08-16] MEDS: Ipratropium/Albuterol Neb 3 ML IH SCH ×6 (03:40→23:55)
[2019-08-16 06:40] LABS: INR 1.1; Prothrombin Time 12.6 Seconds (9.4-12.1)
[2019-08-16] MEDS: Budesonide/Formoterol 160/4.5 1 PUFF INH IH SCH ×2 (07:52→22:19)
[2019-08-16] MEDS ORDERED: *HR* Propofol 200 MG/20 ML VIAL IVP ONE (08:09)
[2019-08-16] MEDS ORDERED: Lidocaine -MPF 2% 2 ML VIAL ONE (08:09)
[2019-08-16] MEDS ORDERED: *HR* PHENYLEPHRINE 1,000 MCG/10 ML SYRINGE IVP ONE (08:23)
[2019-08-16] MEDS ORDERED: Lidocaine Viscous Oral Soln 15 ML SOLUTION ONE (09:05)
[2019-08-16] MEDS ORDERED: Lidocaine Viscous Oral Soln 15 ML SOLUTION MM ONE (09:14)
[2019-08-16] MEDS ORDERED: Albuterol 2.5 MG/3 ML NEBULIZER ONE (09:40)
[2019-08-16] MEDS: Insulin LISPRO 300 UNITS/3 ML VIAL SQ SCH ×4 (10:51→21:06)
[2019-08-16] MEDS: Finasteride 5 MG TABLET PO SCH (11:24)
[2019-08-16] MEDS: Multivit/Ca/Min/Fe/FA 1 TAB TABLET PO SCH (11:25)
[2019-08-16] MEDS: Aspirin Enteric Coated 81 MG Tablet PO SCH (11:26)
[2019-08-16 13:28] LABS: Appearance of Body Fluid Slightly Hazy (Clear); Volume of Body Fluid 22 mL
[2019-08-16 13:37] LABS: Appearance of Body Fluid Slightly Hazy (Clear); Volume of Body Fluid 17 mL
[2019-08-16] MEDS: cefTRIAXone 2,000 MG in Water for inj. (sterile) 20 ML IVP SCH (15:44)
[2019-08-16] MEDS: metroNIDAZOLE 500 MG TABLET PO SCH ×2 (15:44→20:24)
[2019-08-16] MEDS: ALPRAZolam 0.5 MG TABLET PO PRN (20:24)
[2019-08-16] MEDS: Azithromycin 500 MG in 0.9 % Sodium Chloride 250 ML IVPB SCH (20:25)
[2019-08-16] MEDS: Latanoprost 2.5 ML BOTTLE BOTH EYES SCH (20:39)
[2019-08-17] MEDS: Ipratropium/Albuterol Neb 3 ML IH SCH ×5 (03:30→20:37)
[2019-08-17] MEDS: *HR* Heparin 5,000 UNIT/ML VIAL SQ SCH ×2 (05:28→18:10)
[2019-08-17 05:34] LABS: Hematocrit 26.6 % (37.5-50.1); Mean Corpuscular HGB Conc 30.1 g/dL (31.6-35.5); Mean Corpuscular Hemoglobin 29.9 pg (28.0-33.3); Mean Corpuscular Volume 99.3 fL (83.0-100.0); Mean Platelet Volume 10.3 fL (9.4-12.4); Platelet Count 249 K/mcL (140-400); Red Blood Count 2.68 M/mcL (4.19-5.50); Red Cell Distribution Width 13.8 % (11.5-14.5)
[2019-08-17 05:35] LABS: White Blood Count 11.6 K/mcL (4.3-11.1)
[2019-08-17 07:52] LABS: BUN/Creatinine Ratio 40 (6-26); Blood Urea Nitrogen 27 mg/dL (8-23); Calcium 8.4 mg/dL (8.6-10.3); Carbon Dioxide 44 mEq/L (23-29); Chloride 97 mEq/L (98-107); Glucose 121 mg/dL (70-105); Osmolality,Calculated 298 (280-300); Potassium 3.9 mEq/L (3.5-5.1); Sodium 141 mEq/L (136-145); eGFR For African Americans > 60 (> 60); eGFR For Non-African Americans > 60 (> 60)
[2019-08-17] MEDS: Budesonide/Formoterol 160/4.5 1 PUFF INH IH SCH ×2 (08:06→20:37)
[2019-08-17] MEDS: Insulin LISPRO 300 UNITS/3 ML VIAL SQ SCH ×4 (08:18→20:54)
[2019-08-17] MEDS: MethylPREDNISolone 40 MG/ML VIAL IVP SCH ×3 (08:22→20:53)
[2019-08-17] MEDS: Multivit/Ca/Min/Fe/FA 1 TAB TABLET PO SCH (08:28)
[2019-08-17] MEDS: metroNIDAZOLE 500 MG TABLET PO SCH ×3 (08:29→20:54)
[2019-08-17] MEDS: Finasteride 5 MG TABLET PO SCH (08:29)
[2019-08-17 08:31] LABS: ABG Base Excess 19 mEq/L (-2 to 3); ABG HCO3 45 mEq/L (21-27); ABG Oxygen Saturation 85 % (95-98); ABG PCO2 64 mmHg (35-45); ABG PH 7.46 pH Units (7.32-7.45); ABG PO2 50 mmHg (85-104); ABG TCO2 47 mEq/L (20-26)
[2019-08-17] MEDS: Aspirin Enteric Coated 81 MG Tablet PO SCH (08:31)
[2019-08-17] MEDS: ALPRAZolam 0.5 MG TABLET PO PRN ×2 (09:01→20:54)
[2019-08-17] MEDS: cefTRIAXone 2,000 MG in Water for inj. (sterile) 20 ML IVP SCH (17:25)
[2019-08-17] MEDS: Latanoprost 2.5 ML BOTTLE BOTH EYES SCH (20:53)
[2019-08-18] MEDS: Ipratropium/Albuterol Neb 3 ML IH SCH ×6 (00:58→20:07)
[2019-08-18 04:57] LABS: Hematocrit 25.7 % (37.5-50.1); Hemoglobin 8.1 g/dL (12.9-16.9); Mean Corpuscular HGB Conc 31.5 g/dL (31.6-35.5); Mean Corpuscular Hemoglobin 30.7 pg (28.0-33.3); Mean Corpuscular Volume 97.3 fL (83.0-100.0); Mean Platelet Volume 11.6 fL (9.4-12.4); Platelet Count 198 K/mcL (140-400); Red Blood Count 2.64 M/mcL (4.19-5.50)
[2019-08-18 05:19] LABS: BUN/Creatinine Ratio 43 (6-26); Blood Urea Nitrogen 29 mg/dL (8-23); Calcium 8.4 mg/dL (8.6-10.3); Carbon Dioxide 40 mEq/L (23-29); Chloride 92 mEq/L (98-107); Glucose 191 mg/dL (70-105); Osmolality,Calculated 297 (280-300); Potassium 4.8 mEq/L (3.5-5.1); Sodium 138 mEq/L (136-145); eGFR For African Americans > 60 (> 60); eGFR For Non-African Americans > 60 (> 60)
[2019-08-18] MEDS: *HR* Heparin 5,000 UNIT/ML VIAL SQ SCH ×2 (05:55→17:11)
[2019-08-18 06:03] LABS: ABG Base Excess 18 mEq/L (-2 to 3); ABG HCO3 45 mEq/L (21-27); ABG Oxygen Saturation 97 % (95-98); ABG PCO2 67 mmHg (35-45); ABG PH 7.43 pH Units (7.32-7.45); ABG PO2 91 mmHg (85-104); ABG TCO2 47 mEq/L (20-26)
[2019-08-18] MEDS: Budesonide/Formoterol 160/4.5 1 PUFF INH IH SCH ×2 (07:15→20:07)
[2019-08-18] MEDS: metroNIDAZOLE 500 MG TABLET PO SCH (09:34)
[2019-08-18] MEDS: Aspirin Enteric Coated 81 MG Tablet PO SCH (09:35)
[2019-08-18] MEDS: Multivit/Ca/Min/Fe/FA 1 TAB TABLET PO SCH (09:35)
[2019-08-18] MEDS: Finasteride 5 MG TABLET PO SCH (09:36)
[2019-08-18] MEDS: MethylPREDNISolone 40 MG/ML VIAL IVP SCH ×2 (09:36→21:20)
[2019-08-18] MEDS: ALPRAZolam 0.5 MG TABLET PO PRN ×2 (09:44→21:28)
[2019-08-18] MEDS ORDERED: Sennosides/Docusate Sodium TABLET PO SCH (09:45)
[2019-08-18] MEDS ORDERED: Morphine Sulfate Oral CONC 10 MG/0.5 ML ORAL.SYG SL PRN (11:07)
[2019-08-18] MEDS: Insulin LISPRO 300 UNITS/3 ML VIAL SQ SCH ×4 (13:45→21:17)
[2019-08-18] MEDS: Sennosides/Docusate Sodium TABLET PO SCH (13:50)
[2019-08-18] MEDS: Latanoprost 2.5 ML BOTTLE BOTH EYES SCH (21:26)
[2019-08-19] MEDS: Ipratropium/Albuterol Neb 3 ML IH SCH ×3 (00:54→07:26)
[2019-08-19] MEDS: *HR* Heparin 5,000 UNIT/ML VIAL SQ SCH (05:41)
[2019-08-19 06:54] VITALS: BP 117/66
[2019-08-19] MEDS: Budesonide/Formoterol 160/4.5 1 PUFF INH IH SCH (07:26)
[2019-08-19] MEDS: ALPRAZolam 0.5 MG TABLET PO PRN (08:04)
[2019-08-19] MEDS: Multivit/Ca/Min/Fe/FA 1 TAB TABLET PO SCH (08:05)
[2019-08-19] MEDS: Aspirin Enteric Coated 81 MG Tablet PO SCH (08:05)
[2019-08-19] MEDS: Finasteride 5 MG TABLET PO SCH (08:05)
[2019-08-19] MEDS: Sennosides/Docusate Sodium TABLET PO SCH (08:05)
[2019-08-19] MEDS: MethylPREDNISolone 40 MG/ML VIAL IVP SCH (08:05)
== END 2019-08-19 10:54 | disposition hospice, home (50) | DRG 871 ==
LOC: EMEROOARM 17:12 → 3ANU 20:31 → SUATTDRO 20:31 → 3ANU 21:38
PROVIDERS: ADMIT Internal Medicine; ATTEND Internal Medicine
PROC: ENDOBRF (2019-08-16 17:30)